=== PATIENT | male | born 1925 | race Caucasian/White ===

== ENCOUNTER → 2016-03-09 | Outpatient (CLI) | payer MEDICARE ==
[~2016-03-09] MED LIST: /TAMS4CA PO; ACET-654 PO; AMLO5TAB2 PO; ASCO250C PO; ASPI81CH32 PO; ASPI81TA45 PO; ATEN25TA; BABY81CH PO; CALC0.25 PO; CALCITRIOL PO; COLA100C PO; DEXI60CA PO; FINA5TAB2 PO; FLOM5CAP PO; HYDR50TA7; LEVO125T3 PO; LEVO137T2 PO; LOSA50TA20 PO; MIRA3350 PO; MULTLIQ7 PO; PANT40TA2 PO; PRAV40TA PO; PRAV40TA2 PO; RANI300C PO; SYNT125T PO; SYNTHROID PO; THERGRAN PO; VITA-112 PO; VITAD1000T PO
[2016-03-09 09:20] LABS: MEAN CORPUSCULAR HEMOGLOBIN 30.4 pg (27.0-33.0); MEAN CORPUSCULAR HGB CONC 33.1 g/dl (32.0-36.5); MEAN CORPUSCULAR VOLUME 91.8 fl (80.0-96.0); WHITE BLOOD COUNT 5.8 K/mm3 (4.0-10.0)
[2016-03-09 09:43] LABS: ALBUMIN 3.7 GM/DL (3.2-5.2); ALBUMIN/GLOBULIN RATIO 1.12 (1.00-1.93); BILIRUBIN,TOTAL 0.6 MG/DL (0.2-1.0); CALCIUM LEVEL 9.2 MG/DL (8.8-10.2); CREATININE FOR GFR 2.23 MG/DL (0.70-1.30); GLOMERULAR FILTRATION RATE 29.8 (>35); POTASSIUM SERUM 4.2 MEQ/L (3.5-5.1)
== END ==
LOC: M WUC 08:15
PROVIDERS: ATTEND Physician Assistant Medical
DX: R10.13 Epigastric pain (principal)

== ENCOUNTER → 2016-03-15 | Outpatient (CLI) | payer MEDICARE ==
[~2016-03-15] MED LIST changes: +E-Z-GAS II EFFERVESCENT PACKET (SODIUM BICARB./CITRIC ACID/SIMETHICONE) As Ordered ONE; +E-Z-HD 98% w/w 340GM SUSP BTL As Ordered ONE; +E-Z-PAQUE 96% w/w SUSP 176GM BTL As Ordered ONE
--- NOTE | 2016-03-15 16:55 | REP ---
UPPER GI, AIR CONTRAST: The procedure was performed under the direct supervision of Dr. Manning. The images were reviewed with Dr. Manning. The tool honing machine set up operator film shows no organomegaly or pathological masses. The intestinal gas pattern is nonspecific. There are surgical clips noted in the right upper quadrant as well as a single surgical clip overlying the right pelvis. There is a calcification in the pelvis to the left of midline which is seen to the left of the rectum on a previous CAT scan dated 04/10/2015. Liquid barium and gas-producing granules were given in the erect position as well as liquid barium in the prone oblique position in order to perform a double-contrast upper GI examination. The oral and pharyngeal stage of deglutition are unremarkable. During esophageal transport there re tertiary waves demonstrated. Note is made of a dual lead pace maker in place. There is no esophagitis, stricture, mucosal ring, or hiatal hernia. Gastroesophageal reflux is not demonstrated on this examination. The stomach parker are normally outlined. The rugal folds are smooth and regular. There is no gastritis, neoplasm, or ulcer disease. The duodenal parker are normally outlined. The mucosal folds are smooth and regular. There is no duodenitis, pancreatitis, peptic ulcer disease, or neoplasm. The visualized portion of the proximal small bowel appears normal in course and caliber. IMPRESSION: Esophageal dysmotility, otherwise unremarkable double contrast upper GI examination. 1 minute and 26 seconds of fluoroscopic time was utilized for this procedure. Reviewed by LAMONT Garcia 03/16/2016 08:24 AEdited and Signed by Mat Manning MD 03/16/2016 09:41 A
== END ==
LOC: M RAD 08:23
PROVIDERS: ATTEND Physician Assistant Medical
DX: R10.13 Epigastric pain (principal); K31.84 Gastroparesis; K59.00 Constipation, unspecified

== ENCOUNTER 2016-03-26 17:21 | Emergency (ER) | payer MEDICARE ==
[~2016-03-26 17:21] MED LIST changes: -E-Z-GAS II EFFERVESCENT PACKET (SODIUM BICARB./CITRIC ACID/SIMETHICONE) As Ordered ONE; -E-Z-HD 98% w/w 340GM SUSP BTL As Ordered ONE; -E-Z-PAQUE 96% w/w SUSP 176GM BTL As Ordered ONE
--- NOTE | 2016-03-26 20:30 | REPUSA ---
HISTORY: COMPARISON: None. TECHNIQUE: Multiple thin-section contiguous helically-acquired, axially-displayed computed tomographic images of the brain were obtained from the posterior fossa continued through the supratentorial structures, with images reviewed at brain, intermediate, and bone windows. FINDINGS: No acute intracranial hemorrhage or evidence of acute transcortical ischemia. No suspicious intra or extra axial fluid collection, middling shift, or evidence of hydrocephalus. Mild prominence of the co rtical sulci consistent with age-appropriate atrophy and choroid plexus calcifications which are also likely age-related. The orbits and sella demonstrate no suspicious abnormality. Visualized paranasal sinuses, mastoid air cells, and middle ear cavities are patent. Osseous structures and extra cranial soft tissues demonstrate no abnormalities. IMPRESSION: No acute intracranial abnormality. Thank you for your kind referral of this patient.
--- NOTE | 2016-03-26 21:21 | EDDOCDS ---
Nurse's Notes [facility] Name: Baldev Sanders Age: 89 yrs Sex: Male : 1925 Arrival Date: 03/26/2016 Time: 17:21 Bed TR8 Private MD: Florencio Daigle H. Diagnosis: Pain, unspecified-In Right Ear Presentation: 03/26 17:32 Presenting complaint: Patient states: pain inside pinna rt ear at the top saw his [facility] network support engineer who injected the area , now pain behind right ear. 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 Adult Sepsis Screening: The patient does not have new or worsening altered mentation. Patient's respiratory rate is less than 22. Systolic blood pressure is greater than 100. Patient has a qSOFA score of 0- Negative Sepsis Screen. Suicide/Homicide risk assessment- the patient denies having any suicidal and/or homicidal ideations and does not present with any other emotional, behavioral or mental health complaints. Status: Patient is not a workforce services representative or dependent. Transition of care: patient was not received from another setting of care. 17:32 Acuity: FABIO Level 5 [facility] 17:32 Method Of Arrival: Walkin/Carried/Asstd [facility] Triage Assessment: 17:41 General: Appears in no apparent distress, Behavior is appropriate for age, pleasant. [facility] Pain: Location: right ear Pain currently is 4 out of 10 on a pain scale. Neurological: Level of Consciousness is awake, alert, Oriented to person, place, time. EENT: Reports pain in pinna of right ear Pain is 4 out of 10 on a pain scale. Respiratory: Airway is patent Respiratory effort is even, unlabored. Derm: Skin is pink, warm & dry. Historical: - Allergies: Vasotec (Anaphylaxis); Omeprazole (Rash); - Home Meds: 1. amlodipine 10 mg Oral tab 1 tab nightly (Last dose: 03/25/2016) 2. calcitrol 0.25 mg daily (Last dose: 03/26/2016 08:30) 3. Flomax 0.4 mg Oral cp24 1 cap nightly (Last dose: 03/25/2016) 4. levothyroxine 137 mcg Oral cap 1 cap once daily (Last dose: 03/26/2016 08:30) 5. pravastatin 40 mg oral tab 1 tab nightly (Last dose: 03/25/2016) 6. Protonix 40 mg oral TbEC 1 tab 2 times per day (Last dose: 03/26/2016 08:30) 7. Zantac 150 mg oral tab 1 tab nightly (Last dose: 03/25/2016) 8. aspirin 81 mg Oral tab 1 tab once daily (Last dose: 03/26/2016 08:30) 9. Vitamin D Oral 1,000 unit daily (Last dose: 03/26/2016 08:30) 10. multivitamin Oral tab 1 tablet daily (Last dose: 03/26/2016 08:30) - PMHx: GERD; Hypercholesterolemia; Hypothyroidism; Hypertension; enlarged prostate; - PSHx: HERNIA REPAIR; Thyroid Surgery; Pacemaker Insertion (November 2011); - Social history: Smoking status: Patient states former smoker of tobacco. No barriers to communication noted, The patient speaks fluent Filipino. - Family history: Not pertinent. - : The pt / caregiver states he / she is not on anticoagulants. Home medication list is obtained from the patient. - Exposure Risk Screening:: None identified. Screenin:18 Screening information is obtained from the patient. Fall risk: No risks identified. mcp Assistance ADL's: requires no assistance with activities of daily living. Abuse/DV Screen: The patient / caregiver reports he/she is: not in a situation that causes fear, pain or injury. Nutritional screening: No deficits noted. Advance Directives: There is no active DNR order. home support is adequate. Assessment: 21:18 General: Appears uncomfortable, Behavior is cooperative. Pain: Location: pinna of right mcp ear. Neurological: No deficits noted. Respiratory: No deficits noted. Derm: Skin is pink, warm & dry. Vital Signs: 17:24 BP 147 / 81; Pulse 83; Resp 17; Temp 96.8(O); Pulse Ox 98% on R/A; Weight 74.84 kg (R); lr2 Height 5 ft. 7 in. (170.18 cm) (R); Pain 4/10; 17:24 Body Mass Index 25.84 (74.84 kg, 170.18 cm) lr2 Vitals: 17:24 Log In Time: March 26, 2016 at 17:21. lr2 ED Course: 17:23 Patient visited by Kaylah Aguila. lr2 17:23 Florencio Daigle is Private Physician. lr2 17:23 Patient moved to Waiting lr2 17:24 Patient moved to Pre RCE lr2 17:35 Triage Initiated kpj 17:55 Patient moved to Triage 2 dem1 18:11 Alexei Rodriguez PA-C is PHCP. dk1 18:11 Tracie Medina MD is Attending Physician. dk1 18:11 Patient visited by Alexei Rodriguez PA-C. dk1 18:17 Patient name changed from Baldev\S\G\S\Marilyn\S\ to Baldev\S\Sudheer\S\Marilyn. EDMS 18:19 [id number] Payment Agreement was scanned into [employer] and attached to record. gb 18:57 Patient moved to TR1 dem1 20:36 CT Head Without Contrast Returned. EDMS 20:46 Patient moved to PR1 / 25 [facility] 20:51 Florencio Daigle is Referral Physician. dk1 21:19 The patient / caregiver is instructed regarding the plan of care and ED course. Patient mcp has correct armband on for positive identification. Bed in low position. Call light in reach. 21:19 Patient moved to TR8 cz 21:19 No IV's were initiated during this patient's visit. No procedures done that require mcp assistance. Order Results: Radiology Order: CT Head Without Contrast Test: CT Head Without Contrast REASON FOR EXAMINATION: Right Ear/Mastoid pain; ; HISTORY:; COMPARISON: None.; TECHNIQUE:; Multiple thin-section contiguous helically-acquired, axially-displayed computed tomographic images of; the brain were obtained from the posterior fossa continued through the supratentorial; structures, with images reviewed at brain, intermediate, and bone windows.; FINDINGS:; No acute intracranial hemorrhage or evidence of acute transcortical ischemia. No suspicious intra or; extra axial fluid collection, middling shift, or evidence of hydrocephalus. Mild prominence of the co; rtical sulci consistent with age-appropriate atrophy and choroid plexus calcifications which are also; likely age-related.; The orbits and sella demonstrate no suspicious abnormality.; Visualized paranasal sinuses, mastoid air cells, and middle ear cavities are patent.; Osseous structures and extra cranial soft tissues demonstrate no abnormalities.; IMPRESSION:; No acute intracranial abnormality.; Thank you for your kind referral of this patient.; ; Outcome: 20:51 Discharge ordered by Provider. dk1 21:20 Discharge Assessment: patient administered narcotics - no. The following High Risk [facility] Discharge criteria are identified: None. Discharged to home ambulatory, with family. Condition: stable. Discharge instructions given to patient, Instructed on discharge instructions, follow up and referral plans. medication usage, Demonstrated understanding of instructions, medications, Pt was receptive of discharge instructions/ teaching. Prescriptions given X 1. No special radiology studies were completed. Property sent home with patient. 21:20 Patient left the ED. [facility] Signatures: Dispatcher [employer] EDMS Jennifer Santana RN RN Carmenza Newberry RN RN Dominik Ferrara, RN RN Carol Tang, Alexei Amin, PA-C PA-C david1 Ammy Gunderson1 Sherrill Iverson,RN RN Kaylah Bob2 MONTRELL
--- NOTE | 2016-03-26 21:21 | EDDOCDS ---
Physician Documentation [facility] Name: Baldev Sanders Age: 89 yrs Sex: Male : 1925 Arrival Date: 03/26/2016 Time: 17:21 Bed TR8 Private MD: Florencio Daigle H. Disposition: 03/26/16 20:51 Discharged to Home/Self Care. Impression: Pain, unspecified - In Right Ear. - Condition is Stable. - Discharge Instructions: Pain Without a Known Cause. - Prescriptions for Tylenol 325 mg Oral Tablet - take 2 tablet by ORAL route every 6 hours as needed; 1 bottle. - Medication Reconciliation, Local Pharmacy Hours form. - Follow up: Florencio Daigle; When: 2 - 3 days; Reason: Continuance of care. Follow up: Emergency Department; When: As needed; Reason: Worsening of conditions. - Problem is new. - Symptoms have improved. Historical: - Allergies: Vasotec (Anaphylaxis); Omeprazole (Rash); - Home Meds: 1. amlodipine 10 mg Oral tab 1 tab nightly (Last dose: 03/25/2016) 2. calcitrol 0.25 mg daily (Last dose: 03/26/2016 08:30) 3. Flomax 0.4 mg Oral cp24 1 cap nightly (Last dose: 03/25/2016) 4. levothyroxine 137 mcg Oral cap 1 cap once daily (Last dose: 03/26/2016 08:30) 5. pravastatin 40 mg oral tab 1 tab nightly (Last dose: 03/25/2016) 6. Protonix 40 mg oral TbEC 1 tab 2 times per day (Last dose: 03/26/2016 08:30) 7. Zantac 150 mg oral tab 1 tab nightly (Last dose: 03/25/2016) 8. aspirin 81 mg Oral tab 1 tab once daily (Last dose: 03/26/2016 08:30) 9. Vitamin D Oral 1,000 unit daily (Last dose: 03/26/2016 08:30) 10. multivitamin Oral tab 1 tablet daily (Last dose: 03/26/2016 08:30) - PMHx: GERD; Hypercholesterolemia; Hypothyroidism; Hypertension; enlarged prostate; - PSHx: HERNIA REPAIR; Thyroid Surgery; Pacemaker Insertion (November 2011); - Social history: Smoking status: Patient states former smoker of tobacco. No barriers to communication noted, The patient speaks fluent Prydeinig. - Family history: Not pertinent. - : The pt / caregiver states he / she is not on anticoagulants. Home medication list is obtained from the patient. - Exposure Risk Screening:: None identified. Vital Signs: 03/26 17:24 BP 147 / 81; Pulse 83; Resp 17; Temp 96.8(O); Pulse Ox 98% on R/A; Weight 74.84 kg / lr2 164.99 lbs (R); Height 5 ft. 7 in. (170.18 cm) (R); Pain 4/10; 17:24 Body Mass Index 25.84 (74.84 kg, 170.18 cm) lr2 MDM: 18:15 Financial registration complete. gb 18:19 [facility] Payment Agreement was scanned into [employer] and attached to record. gb 18:23 CT Head Without Contrast Ordered. EDMS Signatures: Dispatcher [employer] EDMS Jennifer Santana RN RN kpj Peters, Mary, RN RN mcp Barnhardt, Gloria, Prashanth Reg Alexei Coronel, PALexis PALexis hernandez1 The chart was reviewed and I authenticate all verbal orders and agree with the evaluation and treatment provided.Attachments: 18:19 [facility] Payment Agreement gb MTDD
--- NOTE | 2016-03-28 22:21 | EDDOCDS ---
Nurse's Notes [facility] Name: Baldev Sanders Age: 89 yrs Sex: Male : 1925 Arrival Date: 03/26/2016 Time: 17:21 Bed TR8 Private MD: Florencio Daigle H. Diagnosis: Pain, unspecified-In Right Ear Presentation: 03/26 17:32 Presenting complaint: Patient states: pain inside pinna rt ear at the top saw his [facility] business operations consultant who injected the area , now pain behind right ear. 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 Adult Sepsis Screening: The patient does not have new or worsening altered mentation. Patient's respiratory rate is less than 22. Systolic blood pressure is greater than 100. Patient has a qSOFA score of 0- Negative Sepsis Screen. Suicide/Homicide risk assessment- the patient denies having any suicidal and/or homicidal ideations and does not present with any other emotional, behavioral or mental health complaints. Status: Patient is not a branch service leader or dependent. Transition of care: patient was not received from another setting of care. 17:32 Acuity: FABIO Level 5 [facility] 17:32 Method Of Arrival: Walkin/Carried/Asstd [facility] Triage Assessment: 17:41 General: Appears in no apparent distress, Behavior is appropriate for age, pleasant. [facility] Pain: Location: right ear Pain currently is 4 out of 10 on a pain scale. Neurological: Level of Consciousness is awake, alert, Oriented to person, place, time. EENT: Reports pain in pinna of right ear Pain is 4 out of 10 on a pain scale. Respiratory: Airway is patent Respiratory effort is even, unlabored. Derm: Skin is pink, warm & dry. Historical: - Allergies: Vasotec (Anaphylaxis); Omeprazole (Rash); - Home Meds: 1. amlodipine 10 mg Oral tab 1 tab nightly (Last dose: 03/25/2016) 2. calcitrol 0.25 mg daily (Last dose: 03/26/2016 08:30) 3. Flomax 0.4 mg Oral cp24 1 cap nightly (Last dose: 03/25/2016) 4. levothyroxine 137 mcg Oral cap 1 cap once daily (Last dose: 03/26/2016 08:30) 5. pravastatin 40 mg oral tab 1 tab nightly (Last dose: 03/25/2016) 6. Protonix 40 mg oral TbEC 1 tab 2 times per day (Last dose: 03/26/2016 08:30) 7. Zantac 150 mg oral tab 1 tab nightly (Last dose: 03/25/2016) 8. aspirin 81 mg Oral tab 1 tab once daily (Last dose: 03/26/2016 08:30) 9. Vitamin D Oral 1,000 unit daily (Last dose: 03/26/2016 08:30) 10. multivitamin Oral tab 1 tablet daily (Last dose: 03/26/2016 08:30) - PMHx: GERD; Hypercholesterolemia; Hypothyroidism; Hypertension; enlarged prostate; - PSHx: HERNIA REPAIR; Thyroid Surgery; Pacemaker Insertion (November 2011); - Social history: Smoking status: Patient states former smoker of tobacco. No barriers to communication noted, The patient speaks fluent Peruvian. - Family history: Not pertinent. - : The pt / caregiver states he / she is not on anticoagulants. Home medication list is obtained from the patient. - Exposure Risk Screening:: None identified. Screenin:18 Screening information is obtained from the patient. Fall risk: No risks identified. mcp Assistance ADL's: requires no assistance with activities of daily living. Abuse/DV Screen: The patient / caregiver reports he/she is: not in a situation that causes fear, pain or injury. Nutritional screening: No deficits noted. Advance Directives: There is no active DNR order. home support is adequate. Assessment: 21:18 General: Appears uncomfortable, Behavior is cooperative. Pain: Location: pinna of right mcp ear. Neurological: No deficits noted. Respiratory: No deficits noted. Derm: Skin is pink, warm & dry. Vital Signs: 17:24 BP 147 / 81; Pulse 83; Resp 17; Temp 96.8(O); Pulse Ox 98% on R/A; Weight 74.84 kg (R); lr2 Height 5 ft. 7 in. (170.18 cm) (R); Pain 4/10; 17:24 Body Mass Index 25.84 (74.84 kg, 170.18 cm) lr2 Vitals: 17:24 Log In Time: March 26, 2016 at 17:21. lr2 ED Course: 17:23 Patient visited by Kaylah Aguila. lr2 17:23 Florencio Daigle is Private Physician. lr2 17:23 Patient moved to Waiting lr2 17:24 Patient moved to Pre RCE lr2 17:35 Triage Initiated kpj 17:55 Patient moved to Triage 2 dem1 18:11 Alexei Rodriguez PA-C is PHCP. dk1 18:11 Tracie Medina MD is Attending Physician. dk1 18:11 Patient visited by Alexei Rodriguez PA-C. dk1 18:17 Patient name changed from Baldev\S\G\S\Marilyn\S\ to Baldev\S\Sudheer\S\Marilyn. EDMS 18:19 [facility] Payment Agreement was scanned into [employer] and attached to record. gb 18:57 Patient moved to TR1 dem1 20:36 CT Head Without Contrast Returned. EDMS 20:46 Patient moved to PR1 / 25 [facility] 20:51 Florencio Daigle is Referral Physician. dk1 21:19 The patient / caregiver is instructed regarding the plan of care and ED course. Patient mcp has correct armband on for positive identification. Bed in low position. Call light in reach. 21:19 Patient moved to TR8 cz 21:19 No IV's were initiated during this patient's visit. No procedures done that require mcp assistance. 22:02 T-Sheet-- Draft Copy was scanned into [employer] and attached to record. klr 02 10:30 Radiology Report was scanned into [employer] and attached to record. gb Order Results: Radiology Order: CT Head Without Contrast Test: CT Head Without Contrast REASON FOR EXAMINATION: Right Ear/Mastoid pain; ; HISTORY:; COMPARISON: None.; TECHNIQUE:; Multiple thin-section contiguous helically-acquired, axially-displayed computed tomographic images of; the brain were obtained from the posterior fossa continued through the supratentorial; structures, with images reviewed at brain, intermediate, and bone windows.; FINDINGS:; No acute intracranial hemorrhage or evidence of acute transcortical ischemia. No suspicious intra or; extra axial fluid collection, middling shift, or evidence of hydrocephalus. Mild prominence of the co; rtical sulci consistent with age-appropriate atrophy and choroid plexus calcifications which are also; likely age-related.; The orbits and sella demonstrate no suspicious abnormality.; Visualized paranasal sinuses, mastoid air cells, and middle ear cavities are patent.; Osseous structures and extra cranial soft tissues demonstrate no abnormalities.; IMPRESSION:; No acute intracranial abnormality.; Thank you for your kind referral of this patient.; ; Outcome: 03/26 20:51 Discharge ordered by Provider. dk1 21:20 Discharge Assessment: patient administered narcotics - no. The following High Risk [facility] Discharge criteria are identified: None. Discharged to home ambulatory, with family. Condition: stable. Discharge instructions given to patient, Instructed on discharge instructions, follow up and referral plans. medication usage, Demonstrated understanding of instructions, medications, Pt was receptive of discharge instructions/ teaching. Prescriptions given X 1. No special radiology studies were completed. Property sent home with patient. 21:20 Patient left the ED. [facility] Signatures: Dispatcher [employer] EDMS Jennifer Santana RN RN Carmenza Newberry RN RN mcp Zecher, Calvin, RN RN cz Barnhardt, Gloria, Alexei Amin, PA-C PA-C david1 Ammy Gunderson1 Sherrill Iverson RN RN Juhi Limon Laura lr2 Chart Complete MTDCliff
--- NOTE | 2016-03-28 22:21 | EDDOCDS ---
Physician Documentation [facility] Name: Baldev Sanders Age: 89 yrs Sex: Male : 1925 Arrival Date: 03/26/2016 Time: 17:21 Bed TR8 Private MD: Florencio Daigle H. Disposition: 03/26/16 20:51 Discharged to Home/Self Care. Impression: Pain, unspecified - In Right Ear. - Condition is Stable. - Discharge Instructions: Pain Without a Known Cause. - Prescriptions for Tylenol 325 mg Oral Tablet - take 2 tablet by ORAL route every 6 hours as needed; 1 bottle. - Medication Reconciliation, Local Pharmacy Hours form. - Follow up: Florencio Daigle; When: 2 - 3 days; Reason: Continuance of care. Follow up: Emergency Department; When: As needed; Reason: Worsening of conditions. - Problem is new. - Symptoms have improved. Historical: - Allergies: Vasotec (Anaphylaxis); Omeprazole (Rash); - Home Meds: 1. amlodipine 10 mg Oral tab 1 tab nightly (Last dose: 03/25/2016) 2. calcitrol 0.25 mg daily (Last dose: 03/26/2016 08:30) 3. Flomax 0.4 mg Oral cp24 1 cap nightly (Last dose: 03/25/2016) 4. levothyroxine 137 mcg Oral cap 1 cap once daily (Last dose: 03/26/2016 08:30) 5. pravastatin 40 mg oral tab 1 tab nightly (Last dose: 03/25/2016) 6. Protonix 40 mg oral TbEC 1 tab 2 times per day (Last dose: 03/26/2016 08:30) 7. Zantac 150 mg oral tab 1 tab nightly (Last dose: 03/25/2016) 8. aspirin 81 mg Oral tab 1 tab once daily (Last dose: 03/26/2016 08:30) 9. Vitamin D Oral 1,000 unit daily (Last dose: 03/26/2016 08:30) 10. multivitamin Oral tab 1 tablet daily (Last dose: 03/26/2016 08:30) - PMHx: GERD; Hypercholesterolemia; Hypothyroidism; Hypertension; enlarged prostate; - PSHx: HERNIA REPAIR; Thyroid Surgery; Pacemaker Insertion (November 2011); - Social history: Smoking status: Patient states former smoker of tobacco. No barriers to communication noted, The patient speaks fluent Congolese. - Family history: Not pertinent. - : The pt / caregiver states he / she is not on anticoagulants. Home medication list is obtained from the patient. - Exposure Risk Screening:: None identified. Vital Signs: 03/26 17:24 BP 147 / 81; Pulse 83; Resp 17; Temp 96.8(O); Pulse Ox 98% on R/A; Weight 74.84 kg / lr2 164.99 lbs (R); Height 5 ft. 7 in. (170.18 cm) (R); Pain 4/10; 17:24 Body Mass Index 25.84 (74.84 kg, 170.18 cm) lr2 MDM: 18:15 Financial registration complete. gb 18:19 [facility] Payment Agreement was scanned into [employer] and attached to record. gb 18:23 CT Head Without Contrast Ordered. EDMS 22:02 T-Sheet-- Draft Copy was scanned into [employer] and attached to record. klr 03/27 10:30 Radiology Report was scanned into [employer] and attached to record. gb Signatures: Dispatcher [employer] EDVT Jennifer Santana RN RN kpj Peters, Mary, RN RN mcp Barnhardt, Gloria, Reg Reg Alexei Coronel, DAVIS PAJuhi Bobo The chart was reviewed and I authenticate all verbal orders and agree with the evaluation and treatment provided.Attachments: 03/26 18:19 [facility] Payment Agreement gb 22:02 T-Sheet-- Draft Copy klr Chart Complete MTDD
--- NOTE | 2016-03-28 22:21 | EDDOCDS ---
Physician Documentation [facility] Name: Baldev Sanders Age: 89 yrs Sex: Male : 1925 Arrival Date: 03/26/2016 Time: 17:21 Bed TR8 Private MD: Florencio Daigle H. Disposition: 03/26/16 20:51 Discharged to Home/Self Care. Impression: Pain, unspecified - In Right Ear. - Condition is Stable. - Discharge Instructions: Pain Without a Known Cause. - Prescriptions for Tylenol 325 mg Oral Tablet - take 2 tablet by ORAL route every 6 hours as needed; 1 bottle. - Medication Reconciliation, Local Pharmacy Hours form. - Follow up: Florencio Daigle; When: 2 - 3 days; Reason: Continuance of care. Follow up: Emergency Department; When: As needed; Reason: Worsening of conditions. - Problem is new. - Symptoms have improved. Historical: - Allergies: Vasotec (Anaphylaxis); Omeprazole (Rash); - Home Meds: 1. amlodipine 10 mg Oral tab 1 tab nightly (Last dose: 03/25/2016) 2. calcitrol 0.25 mg daily (Last dose: 03/26/2016 08:30) 3. Flomax 0.4 mg Oral cp24 1 cap nightly (Last dose: 03/25/2016) 4. levothyroxine 137 mcg Oral cap 1 cap once daily (Last dose: 03/26/2016 08:30) 5. pravastatin 40 mg oral tab 1 tab nightly (Last dose: 03/25/2016) 6. Protonix 40 mg oral TbEC 1 tab 2 times per day (Last dose: 03/26/2016 08:30) 7. Zantac 150 mg oral tab 1 tab nightly (Last dose: 03/25/2016) 8. aspirin 81 mg Oral tab 1 tab once daily (Last dose: 03/26/2016 08:30) 9. Vitamin D Oral 1,000 unit daily (Last dose: 03/26/2016 08:30) 10. multivitamin Oral tab 1 tablet daily (Last dose: 03/26/2016 08:30) - PMHx: GERD; Hypercholesterolemia; Hypothyroidism; Hypertension; enlarged prostate; - PSHx: HERNIA REPAIR; Thyroid Surgery; Pacemaker Insertion (November 2011); - Social history: Smoking status: Patient states former smoker of tobacco. No barriers to communication noted, The patient speaks fluent Malian. - Family history: Not pertinent. - : The pt / caregiver states he / she is not on anticoagulants. Home medication list is obtained from the patient. - Exposure Risk Screening:: None identified. Vital Signs: 03/26 17:24 BP 147 / 81; Pulse 83; Resp 17; Temp 96.8(O); Pulse Ox 98% on R/A; Weight 74.84 kg / lr2 164.99 lbs (R); Height 5 ft. 7 in. (170.18 cm) (R); Pain 4/10; 17:24 Body Mass Index 25.84 (74.84 kg, 170.18 cm) lr2 MDM: 18:15 Financial registration complete. gb 18:19 [facility] Payment Agreement was scanned into [employer] and attached to record. gb 18:23 CT Head Without Contrast Ordered. EDMS 22:02 T-Sheet-- Draft Copy was scanned into [employer] and attached to record. klr 03/27 10:30 Radiology Report was scanned into [employer] and attached to record. gb Signatures: Dispatcher [employer] EDDE Jennifer Santana RN RN kpj Peters, Mary, RN RN mcp Barnhardt, Gloria, Reg Reg Alexei Coronel, DAVIS PAJuhi Bobo The chart was reviewed and I authenticate all verbal orders and agree with the evaluation and treatment provided.Attachments: 03/26 18:19 [facility] Payment Agreement gb 22:02 T-Sheet-- Draft Copy klr Chart Complete MTDD
== END 2016-03-26 21:20 | disposition home or self-care (01) ==
LOC: M ED 17:21
DX: H92.01 Otalgia, right ear (principal); K21.9 Gastro-esophageal reflux disease without esophagitis; E78.00 Pure hypercholesterolemia, unspecified; E03.9 Hypothyroidism, unspecified; I10 Essential (primary) hypertension; N40.0 Benign prostatic hyperplasia without lower urinary tract symptoms; Z95.0 Presence of cardiac pacemaker; Z87.891 Personal history of nicotine dependence; Z79.82 Long term (current) use of aspirin; Z79.899 Other long term (current) drug therapy; Z88.8 Allergy status to other drugs, medicaments and biological substances

== ENCOUNTER 2016-04-02 10:08 | Emergency (ER) | payer MEDICARE ==
[2016-04-02 11:16] LABS: BASO % 0.6 % (0.0-1.0); EOS # 0.2 K/mm3 (0.0-0.50); EOS % 3.2 % (0.0-3.0); LARGE UNSTAINED CELL # 0.2 K/mm3 (0.0-0.4); LARGE UNSTAINED CELL % 2.5 % (0.0-4.0); LYMPH # 0.7 K/mm3 (1.5-4.5); LYMPH % 12.3 % (24.0-44.0); MEAN CORPUSCULAR HEMOGLOBIN 29.8 pg (27.0-33.0); MEAN CORPUSCULAR HGB CONC 32.3 g/dl (32.0-36.5); MONO # 0.3 K/mm3 (0.0-0.8); MONO % 5.7 % (0.0-5.0); NEUTROPHILS # 4.5 K/mm3 (1.8-7.7); NEUTROPHILS % 75.7 % (36.0-66.0); PLATELET COUNT, AUTOMATED 209 k/mm3 (150-450); RED CELL DISTRIBUTION WIDTH 12.9 % (11.5-14.5); WHITE BLOOD COUNT 5.9 K/mm3 (4.0-10.0)
[2016-04-02 11:48] LABS: CALCIUM LEVEL 8.7 MG/DL (8.8-10.2); CREATININE FOR GFR 2.05 MG/DL (0.70-1.30); FREE T4 1.34 NG/DL (0.76-1.46); GLOMERULAR FILTRATION RATE 32.7 (>35); POTASSIUM SERUM 4.4 MEQ/L (3.5-5.1)
--- NOTE | 2016-04-02 12:23 | EDDOCDS ---
Nurse's Notes [facility] Name: Baldev Sanders Age: 89 yrs Sex: Male : 1925 Arrival Date: 04/02/2016 Time: 10:08 Bed 12 Private MD: Florencio Daigle H. Diagnosis: Headache;Dizziness and giddiness Presentation: 04/02 10:14 Presenting complaint: Patient states: Headache and dizziness began last night. This mlb1 patient has no additional risk factors. Adult Sepsis Screening: The patient does not have new or worsening altered mentation. Patient's respiratory rate is less than 22. Systolic blood pressure is greater than 100. Patient has a qSOFA score of 0- Negative Sepsis Screen. No known or suspected infection- Negative Sepsis Screen. Suicide/Homicide risk assessment- the patient denies having any suicidal and/or homicidal ideations and does not present with any other emotional, behavioral or mental health complaints. Status: Patient is not a marketing services manager or dependent. Transition of care: patient was not received from another setting of care. 10:14 Acuity: FABIO Level 3 mlb1 10:14 Method Of Arrival: Walkin/Carried/Asstd mlb1 Triage Assessment: 10:18 Headache History: This patient does not have a history of previous headaches. General: mlb1 Appears in no apparent distress, Behavior is appropriate for age, cooperative. Pain: Location: head Pain currently is 5 out of 10 on a pain scale. Neurological: Level of Consciousness is awake, alert, Oriented to person, place, time, Moves all extremities. Full function Facial symmetry appears normal, Reports dizziness. Historical: - Allergies: Omeprazole (Rash); Vasotec (Anaphylaxis); - Home Meds: 1. amlodipine 10 mg Oral tab 1 tab nightly 2. aspirin 81 mg Oral tab 1 tab once daily 3. calcitrol 0.25 mg daily 4. Flomax 0.4 mg Oral cp24 1 cap nightly 5. levothyroxine 137 mcg Oral tab 1 cap once daily 6. multivitamin Oral tab 1 tab daily 7. pravastatin 40 mg oral tab 1 tab nightly 8. Protonix 40 mg Oral TbEC 1 tab 2 times per day 9. Vitamin D Oral 1000 unit daily 10. Zantac 150 mg Oral tab 1 tab nightly 11. Tylenol 325 mg Oral tab 2 tabs every 4 hours (Last dose: 04/02/2016 09:00) - PMHx: enlarged prostate; GERD; Hypercholesterolemia; Hypertension; Hypothyroidism; Cancer, Skin; - PSHx: Hernia repair; Thyroid Surgery; Pacemaker Insertion (November 2011); - Social history: Smoking status: Patient states former smoker of tobacco. No barriers to communication noted, The patient speaks fluent French, Speaks appropriately for age. - Family history: Not pertinent. - : The pt / caregiver states he / she is not on anticoagulants. Home medication list is obtained from the patient. - Exposure Risk Screening:: None identified. Screenin:28 Screening information is obtained from the patient. Fall risk: No risks identified. pml Assistance ADL's: requires no assistance with activities of daily living. Abuse/DV Screen: The patient / caregiver reports he/she is: not in a situation that causes fear, pain or injury. Nutritional screening: No deficits noted. Advance Directives: Currently, there is no health care proxy. home support is adequate. Assessment: 10:28 General: Appears in no apparent distress, Behavior is appropriate for age, cooperative. pml Pain: Location: head Pain currently is 5 out of 10 on a pain scale. Neurological: Level of Consciousness is awake, alert, Oriented to person, place, time. Neurological: Pasteuriser Operator are equal bilaterally Moves all extremities. Gait is steady, Speech is normal, Facial symmetry appears normal, Pupils are PERRLA. Cardiovascular: Capillary refill < 3 seconds. Respiratory: Airway is patent Respiratory effort is even, unlabored. GI: Abdomen is non- distended. Derm: Skin is pink, warm & dry. 11:30 General: restign on stretcher, resp easy and unlabored, skin p/w/d. sinus rhythm on pml monitor without ectopy. 12:20 General: Appears in no apparent distress, Behavior is appropriate for age, cooperative. pml Pain: Denies pain. Neurological: Level of Consciousness is awake, alert, Oriented to person, place, time. Cardiovascular: Capillary refill < 3 seconds. Respiratory: Airway is patent Respiratory effort is even, unlabored. Derm: Skin is pink, warm & dry. Vital Signs: 10:10 BP 152 / 91; Pulse 90; Resp 16; Temp 96.6; Pulse Ox 98% on R/A; Weight 74.84 kg (R); elp Height 5 ft. 7 in. (170.18 cm) (R); 10:26 BP 119 / 67 (auto/); pml 10:29 Pulse Ox 99% ; pml 11:11 BP 133 / 62 Sitting; Pulse 65; pml 11:11 BP 146 / 71 LA Supine; Pulse 60; pml 11:11 BP 126 / 63 Standing; Pulse 64; pml 11:45 BP 134 / 76 (auto/); pml 11:46 Pulse 60 MON; Pulse Ox 97% ; pml 11:56 Pulse 62 MON; Pulse Ox 96% ; pml 12:00 BP 139 / 76 (auto/); pml 12:21 BP 136 / 72; Pulse 61; Resp 18; Temp 97.6; Pulse Ox 99% ; pml 10:10 Body Mass Index 25.84 (74.84 kg, 170.18 cm) [facility] Vitals: 10:10 Log In Time: April 02, 2016 at 10:08. elp ED Course: 10:10 Patient visited by Keily Joshua PCA. elp 10:10 Florencio Daigle is Private Physician. elp 10:10 Patient moved to Waiting elp 10:11 Patient visited by Keily Joshua PCA. elp 10:11 Patient moved to Pre RCE elp 10:14 Patient visited by Bennie Dempsey, RN. mlb1 10:16 Triage Initiated mlb1 10:19 Patient visited by Bennie Dempsey, RN. mlb1 10:19 Irma Tucker,RN is Primary Nurse. ck1 10:19 Patient moved to Triage 1 mlb1 10:19 Patient moved to 12 ck1 10:28 The patient / caregiver is instructed regarding the plan of care and ED course. Patient margie has correct armband on for positive identification. Placed in gown. Bed in low position. Call light in reach. Side rails up X2. 10:30 Patient visited by Irma Tucker,RN. pml 10:31 Carolyn Fragoso MD is Attending Physician. ml 10:31 Patient visited by Carolyn Fragoso MD. ml 11:06 EKG done. (by ED staff). Reviewed by Carolyn Fragoso MD. jrd 11:07 [facility] Payment Agreement was scanned into [employer] and attached to record. gb 11:11 Inserted peripheral IV: 20gauge IV in right antecubital area and blood collected. pml Patient tolerated the procedure well. 11:12 Patient visited by Irma Tucker RN. pml 12:14 Florencio Daigle is Referral Physician. ml 12:14 Leticia Shah RNNP is Referral Physician. ml 12:21 Discontinued lock intact, bleeding controlled, pressure dressing applied, No pml redness/swelling at site. No procedures done that require assistance. Order Results: Lab Order: CBC with Diff; SPEC'M 04/02/16 11:04 Test: WHITE BLOOD COUNT; Value: 5.9; Range: 4.0-10.0; Units: K/mm3; Status: F Test: RED BLOOD COUNT; Value: 4.74; Range: 4.30-6.10; Units: M/mm3; Status: F Test: HEMOGLOBIN; Value: 14.1; Range: 14.0-18.0; Units: g/dl; Status: F Test: HEMATOCRIT; Value: 43.6; Range: 42.0-52.0; Units: %; Status: F Test: MEAN CORPUSCULAR VOLUME; Value: 92.0; Range: 80.0-96.0; Units: fl; Status: F Test: MEAN CORPUSCULAR HEMOGLOBIN; Value: 29.8; Range: 27.0-33.0; Units: pg; Status: F Test: MEAN CORPUSCULAR HGB CONC; Value: 32.3; Range: 32.0-36.5; Units: g/dl; Status: F Test: RED CELL DISTRIBUTION WIDTH; Value: 12.9; Range: 11.5-14.5; Units: %; Status: F Test: PLATELET COUNT, AUTOMATED; Value: 209; Range: 150-450; Units: k/mm3; Status: F Test: NEUTROPHILS %; Value: 75.7; Range: 36.0-66.0; Abnormal: Above high normal; Units: %; Status: F Test: LYMPH %; Value: 12.3; Range: 24.0-44.0; Abnormal: Below low normal; Units: %; Status: F Test: MONO %; Value: 5.7; Range: 0.0-5.0; Abnormal: Above high normal; Units: %; Status: F Test: EOS %; Value: 3.2; Range: 0.0-3.0; Abnormal: Above high normal; Units: %; Status: F Test: BASO %; Value: 0.6; Range: 0.0-1.0; Units: %; Status: F Test: LARGE UNSTAINED CELL %; Value: 2.5; Range: 0.0-4.0; Units: %; Status: F Test: NEUTROPHILS #; Value: 4.5; Range: 1.8-7.7; Units: K/mm3; Status: F Test: LYMPH #; Value: 0.7; Range: 1.5-4.5; Abnormal: Below low normal; Units: K/mm3; Status: F Test: MONO #; Value: 0.3; Range: 0.0-0.8; Units: K/mm3; Status: F Test: EOS #; Value: 0.2; Range: 0.0-0.50; Units: K/mm3; Status: F Test: BASO #; Value: 0.0; Range: 0.0-0.2; Units: K/mm3; Status: F Test: LARGE UNSTAINED CELL #; Value: 0.2; Range: 0.0-0.4; Units: K/mm3; Status: F Lab Order: MED Profile; SPEC'M 04/02/16 11:04 Test: GLUCOSE, FASTING; Value: 95; Range: 83-110; Units: MG/DL; Status: F Test: BLOOD UREA NITROGEN; Value: 35; Range: 7-18; Abnormal: Above high normal; Units: MG/DL; Status: F Test: CREATININE FOR GFR; Value: 2.05; Range: 0.70-1.30; Abnormal: Above high normal; Units: MG/DL; Status: F Test: GLOMERULAR FILTRATION RATE; Value: 32.7; Range: >35; Abnormal: Below low normal; Status: F Test: SODIUM LEVEL; Value: 142; Range: 136-145; Units: MEQ/L; Status: F Test: POTASSIUM SERUM; Value: 4.4; Range: 3.5-5.1; Units: MEQ/L; Status: F Test: CHLORIDE LEVEL; Value: 108; Range: 98-107; Abnormal: Above high normal; Units: MEQ/L; Status: F Test: CARBON DIOXIDE LEVEL; Value: 28; Range: 21-32; Units: MEQ/L; Status: F Test: ANION GAP; Value: 6; Range: 8-16; Abnormal: Below low normal; Units: MEQ/L; Status: F Test: CALCIUM LEVEL; Value: 8.7; Range: 8.8-10.2; Abnormal: Below low normal; Units: MG/DL; Status: F Test Note: ; Units are mL/min/1.73 m2 Chronic Kidney Disease Staging per NKF: Stage I & II GFR >=60 Normal to Mildly Decreased Stage III GFR 30-59 Moderately Decreased Stage IV GFR 15-29 Severely Decreased Stage V GFR <15 Very Little GFR Left ESRD GFR <15 on CONFIGURATION TECHNICIAN Lab Order: CIP; 04/02/16 11:04 Test: CPK CREATINE PHOSPHOKINASE; Value: 73; Range: 39-308; Units: U/L; Status: F Test: CK-MB VALUE MASS; Value: 2.8; Range: 0.0-3.6; Units: NG/ML; Status: F Test: MB/CK RELATIVE INDEX; Value: 3.83; Range: < OR =4; Status: F Test Note: ; DIAGNOSIS CRITERIA MMB ng/ml Relative Index (RI) NON-AMI < or = 5 N/A GODDARD ZONE > 5 < or = 4 AMI > 5 > 4 Lab Order: Troponin; 04/02/16 11:04 Test: TROPONIN I; Value: 0.02; Range: < 0.10; Units: NG/ML; Status: F Test Note: ; Troponin I Reference Interval for SignalSet LOCI: 99th Percentile= 0.00-0.045 ng/ml Risk Stratification: <= 0.10 ng/ml Decreased Risk for Adverse Clinical Events. 0.10-1.50 ng/ml Increased Risk for Adverse Clinical Events. Evaluation of additional criterion and/or repeat testing in 2-6 hours is suggested to rule out myocardial damage. >= 1.50 ng/ml Indicative of Myocardial Injury. Lab Order: TSH with Free T4; 04/02/16 11:04 Test: THYROID STIMULATING HORMONE; Value: 0.975; Range: 0.358-3.740; Units: uIU/ML; Status: F Test: FREE T4; Value: 1.34; Range: 0.76-1.46; Units: NG/DL; Status: F Outcome: 12:15 Discharge ordered by Provider. 12:21 Discharge Assessment: Patient awake, alert and oriented x 3. No cognitive and/or pml functional deficits noted. Patient verbalized understanding of disposition instructions. patient administered narcotics - no. The following High Risk Discharge criteria are identified: None. Discharged to home ambulatory. Condition: good Condition: stable. Discharge instructions given to patient, Instructed on discharge instructions, follow up and referral plans. Demonstrated understanding of instructions, Pt was receptive of discharge instructions/ teaching. CT Study completed. Property sent home with patient. 12:22 Patient left the ED. pml Signatures: Carolyn Fragoso MD MD ml Carol Zarate, Bennie Alexandra RN RN mlb1 Shirley Sarmiento,RN RN ck1 Irma Tucker,RN RN pml Keily Joshua, REGIONAL SALES COORDINATOR REGIONAL SALES COORDINATOR elp Jose Rivera, REGIONAL SALES COORDINATOR REGIONAL SALES COORDINATOR jrd RODNEYD
--- NOTE | 2016-04-02 12:23 | EDDOCDS ---
Physician Documentation [facility] Name: Baldev Sanders Age: 89 yrs Sex: Male : 1925 Arrival Date: 04/02/2016 Time: 10:08 Bed 12 Private MD: Florencio Gordon H. Disposition: 04/02/16 12:15 Discharged to Home/Self Care. Impression: Headache, Dizziness and giddiness. - Condition is Stable. - Discharge Instructions: Dizziness, General Headache Without Cause. - Medication Reconciliation, Local Pharmacy Hours form. - Follow up: Florencio Gordon; When: 1 - 2 days. Follow up: Leticia Ugarte RNNP; When: 1 week. - Problem is new. - Symptoms are unchanged. - Notes: return if worsening symptoms. follow up w dr gordon and omer ugarte Historical: - Allergies: Omeprazole (Rash); Vasotec (Anaphylaxis); - Home Meds: 1. amlodipine 10 mg Oral tab 1 tab nightly 2. aspirin 81 mg Oral tab 1 tab once daily 3. calcitrol 0.25 mg daily 4. Flomax 0.4 mg Oral cp24 1 cap nightly 5. levothyroxine 137 mcg Oral tab 1 cap once daily 6. multivitamin Oral tab 1 tab daily 7. pravastatin 40 mg oral tab 1 tab nightly 8. Protonix 40 mg Oral TbEC 1 tab 2 times per day 9. Vitamin D Oral 1000 unit daily 10. Zantac 150 mg Oral tab 1 tab nightly 11. Tylenol 325 mg Oral tab 2 tabs every 4 hours (Last dose: 04/02/2016 09:00) - PMHx: enlarged prostate; GERD; Hypercholesterolemia; Hypertension; Hypothyroidism; Cancer, Skin; - PSHx: Hernia repair; Thyroid Surgery; Pacemaker Insertion (November 2011); - Social history: Smoking status: Patient states former smoker of tobacco. No barriers to communication noted, The patient speaks fluent Belarusian, Speaks appropriately for age. - Family history: Not pertinent. - : The pt / caregiver states he / she is not on anticoagulants. Home medication list is obtained from the patient. - Exposure Risk Screening:: None identified. Vital Signs: 04/02 10:10 BP 152 / 91; Pulse 90; Resp 16; Temp 96.6; Pulse Ox 98% on R/A; Weight 74.84 kg / elp 164.99 lbs (R); Height 5 ft. 7 in. (170.18 cm) (R); 10:26 BP 119 / 67 (auto/); pml 10:29 Pulse Ox 99% ; pml 11:11 BP 133 / 62 Sitting; Pulse 65; pml 11:11 BP 146 / 71 LA Supine; Pulse 60; pml 11:11 BP 126 / 63 Standing; Pulse 64; pml 11:45 BP 134 / 76 (auto/); pml 11:46 Pulse 60 MON; Pulse Ox 97% ; pml 11:56 Pulse 62 MON; Pulse Ox 96% ; pml 12:00 BP 139 / 76 (auto/); pml 12:21 BP 136 / 72; Pulse 61; Resp 18; Temp 97.6; Pulse Ox 99% ; pml 10:10 Body Mass Index 25.84 (74.84 kg, 170.18 cm) elp MDM: 10:43 IV Saline Lock ordered. ml 10:43 Construction Lineman/Pulse Ox/q 15 min VS ordered. ml 10:43 Rhythm Strip to chart ordered. ml 10:44 Orthostatic VS ordered. ml 10:44 ECG WITH READING ER PHYS+CARDIAG ordered. EDMS 10:45 CBC with Diff Ordered. EDMS 10:45 MED Profile Ordered. EDMS 10:45 CIP Ordered. EDMS 10:45 Troponin Ordered. EDMS 10:45 TSH with Free T4 Ordered. EDMS 10:45 Chest, 1 View Ordered. EDMS 10:45 CT Head Without Contrast Ordered. EDMS 10:45 Financial registration complete. gb 11:07 [facility] Payment Agreement was scanned into [employer] and attached to record. gb 11:30 CBC with Diff Reviewed. ml 11:57 MED Profile Reviewed. ml 11:57 CIP Reviewed. ml 11:57 Troponin Reviewed. ml 11:57 TSH with Free T4 Reviewed. ml Signatures: Dispatcher [employer] EDMS Carolyn Fragoso MD MD ml Barnhardt, Gloria, Reg Reg Bennie Luna RN RN mlb1 Quay, Paulina, RN RN pml The chart was reviewed and I authenticate all verbal orders and agree with the evaluation and treatment provided.Attachments: 11:07 [facility] Payment Agreement gb MTDD
--- NOTE | 2016-04-02 13:11 | REP ---
CT BRAIN WITHOUT CONTRAST: 04/02/2016. Clinical history headache, dizziness. Comparison 03/26/2016, 10/25/2013. Findings: Ventricles are midline, symmetric and without dilatation. There is mild diffuse cerebral atrophy, age appropriate and proportionate to the ventricular size, greatest in the temporal and frontal lobes. Some diffuse cerebellar atrophy is noted also fairly mild. Heterogeneous low attenuation white matter changes seen bilaterally suggesting small vessel white matter ischemic disease. I see no vascular territory infarct, hemorrhage, mass or mass effect. Brainstem unremarkable. Basal cisterns intact. The mastoids were symmetric. Visualized sinuses clear. The calvarium and skull base are without fracture or focal lesion. Impression: 1. No acute infarct, hemorrhage, mass, mass effect or edema. 2. 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 Stable. 3. Sinuses, mastoids, skull base and calvarium without acute finding. Signed by Nadir Parks MD 04/02/2016 07:36 P
--- NOTE | 2016-04-02 13:12 | REP ---
PA CHEST: 04/02/2016. Comparison: AP portable chest 10/25/2013, 2 view chest 12/16/2011. Clinical history: Dizziness. Dual lead pacer is again seen better level of inflation noted. Heart size not grossly enlarged but has left ventricular configuration. The aorta is ectatic and tortuous but unchanged. Airway midline. No mediastinal or hilar mass. No acute infiltrate or pleural effusion. There are surgical clips and bilateral neck base. Degenerative changes shoulders and spine as before. Impression: 1. Dual lead pacer with leads in the right atrium and right ventricle, borderline heart size with left ventricular configuration but no edema, effusion or acute infiltrate. Signed by Nadir Parks MD 04/02/2016 07:36 P
--- NOTE | 2016-04-03 06:28 | ECGEPIP ---
Stationary ECG Study [facility] - ED Test Date: 2016-04-02 Pat Name: NICOLASA GOTTLIEB Department: Room: - Gender: M [employer] Police: dali : 1925 Requested By: Carolyn Fragoso Order Number: [id number] Reading MD: Carolyn Fragoso Measurements Intervals [place] Rate: 62 P: 51 DC: 174 QRS: -64 QRSD: 130 T: 26 QT: 478 QTc: 486 Interpretive Statements SINUS RHYTHM WITH OCCASIONAL VENTRICULAR PREMATURE COMPLEXES MARKED LEFT AXIS DEVIATION LEFT BUNDLE BRANCH BLOCK 04/10/15 - RATE DECREASED Electronically Signed On 04-03-2016 6:27:57 EST by Carolyn Fragoso
--- NOTE | 2016-04-04 13:23 | EDDOCDS ---
Physician Documentation [facility] Name: Baldev Sanders Age: 89 yrs Sex: Male : 1925 Arrival Date: 04/02/2016 Time: 10:08 Bed 12 Private MD: Florencio Gordon H. Disposition: 04/02/16 12:15 Discharged to Home/Self Care. Impression: Headache, Dizziness and giddiness. - Condition is Stable. - Discharge Instructions: Dizziness, General Headache Without Cause. - Medication Reconciliation, Local Pharmacy Hours form. - Follow up: Florencio Gordon; When: 1 - 2 days. Follow up: Leticia Ugarte RNNP; When: 1 week. - Problem is new. - Symptoms are unchanged. - Notes: return if worsening symptoms. follow up w dr gordon and omer ugarte Historical: - Allergies: Omeprazole (Rash); Vasotec (Anaphylaxis); - Home Meds: 1. amlodipine 10 mg Oral tab 1 tab nightly 2. aspirin 81 mg Oral tab 1 tab once daily 3. calcitrol 0.25 mg daily 4. Flomax 0.4 mg Oral cp24 1 cap nightly 5. levothyroxine 137 mcg Oral tab 1 cap once daily 6. multivitamin Oral tab 1 tab daily 7. pravastatin 40 mg oral tab 1 tab nightly 8. Protonix 40 mg Oral TbEC 1 tab 2 times per day 9. Vitamin D Oral 1000 unit daily 10. Zantac 150 mg Oral tab 1 tab nightly 11. Tylenol 325 mg Oral tab 2 tabs every 4 hours (Last dose: 04/02/2016 09:00) - PMHx: enlarged prostate; GERD; Hypercholesterolemia; Hypertension; Hypothyroidism; Cancer, Skin; - PSHx: Hernia repair; Thyroid Surgery; Pacemaker Insertion (November 2011); - Social history: Smoking status: Patient states former smoker of tobacco. No barriers to communication noted, The patient speaks fluent Guamanian, Speaks appropriately for age. - Family history: Not pertinent. - : The pt / caregiver states he / she is not on anticoagulants. Home medication list is obtained from the patient. - Exposure Risk Screening:: None identified. Vital Signs: 04/02 10:10 BP 152 / 91; Pulse 90; Resp 16; Temp 96.6; Pulse Ox 98% on R/A; Weight 74.84 kg / elp 164.99 lbs (R); Height 5 ft. 7 in. (170.18 cm) (R); 10:26 BP 119 / 67 (auto/); pml 10:29 Pulse Ox 99% ; pml 11:11 BP 133 / 62 Sitting; Pulse 65; pml 11:11 BP 146 / 71 LA Supine; Pulse 60; pml 11:11 BP 126 / 63 Standing; Pulse 64; pml 11:45 BP 134 / 76 (auto/); pml 11:46 Pulse 60 MON; Pulse Ox 97% ; pml 11:56 Pulse 62 MON; Pulse Ox 96% ; pml 12:00 BP 139 / 76 (auto/); pml 12:21 BP 136 / 72; Pulse 61; Resp 18; Temp 97.6; Pulse Ox 99% ; pml 10:10 Body Mass Index 25.84 (74.84 kg, 170.18 cm) elp MDM: 10:43 IV Saline Lock ordered. ml 10:43 Golf Course Manager/Pulse Ox/q 15 min VS ordered. ml 10:43 Rhythm Strip to chart ordered. ml 10:44 Orthostatic VS ordered. ml 10:44 ECG WITH READING ER PHYS+CARDIAG ordered. EDMS 10:45 CBC with Diff Ordered. EDMS 10:45 MED Profile Ordered. EDMS 10:45 CIP Ordered. EDMS 10:45 Troponin Ordered. EDMS 10:45 TSH with Free T4 Ordered. EDMS 10:45 Chest, 1 View Ordered. EDMS 10:45 CT Head Without Contrast Ordered. EDMS 10:45 Financial registration complete. gb 11:07 [facility] Payment Agreement was scanned into [employer] and attached to record. gb 11:30 CBC with Diff Reviewed. ml 11:57 MED Profile Reviewed. ml 11:57 CIP Reviewed. ml 11:57 Troponin Reviewed. ml 11:57 TSH with Free T4 Reviewed. ml 16:59 T-Sheet-- Draft Copy was scanned into [employer] and attached to record. klr 04/03 17:57 ECG/EKG was scanned into [employer] and attached to record. kf3 Signatures: Dispatcher [employer] EDMS Carolyn Fragoso MD MD ml Carol Zarate, Reg Reg gb Bennie Dempsey RN RN mlb1 Jose Raya, Reg Reg kf3 Garrett,Irma,Juhi Gonzalez RN The chart was reviewed and I authenticate all verbal orders and agree with the evaluation and treatment provided.Attachments: 04/02 11:07 [facility] [place] Payment Agreement gb 16:59 T-Sheet-- Draft Copy klr 04/03 17:57 ECG/EKG kf3 Chart Complete MTDD
--- NOTE | 2016-04-04 13:23 | EDDOCDS ---
Physician Documentation [facility] Name: Baldev Sanders Age: 89 yrs Sex: Male : 1925 Arrival Date: 04/02/2016 Time: 10:08 Bed 12 Private MD: Florencio Gordon H. Disposition: 04/02/16 12:15 Discharged to Home/Self Care. Impression: Headache, Dizziness and giddiness. - Condition is Stable. - Discharge Instructions: Dizziness, General Headache Without Cause. - Medication Reconciliation, Local Pharmacy Hours form. - Follow up: Florencio Gordon; When: 1 - 2 days. Follow up: Leticia Ugarte RNNP; When: 1 week. - Problem is new. - Symptoms are unchanged. - Notes: return if worsening symptoms. follow up w dr gordon and omer ugarte Historical: - Allergies: Omeprazole (Rash); Vasotec (Anaphylaxis); - Home Meds: 1. amlodipine 10 mg Oral tab 1 tab nightly 2. aspirin 81 mg Oral tab 1 tab once daily 3. calcitrol 0.25 mg daily 4. Flomax 0.4 mg Oral cp24 1 cap nightly 5. levothyroxine 137 mcg Oral tab 1 cap once daily 6. multivitamin Oral tab 1 tab daily 7. pravastatin 40 mg oral tab 1 tab nightly 8. Protonix 40 mg Oral TbEC 1 tab 2 times per day 9. Vitamin D Oral 1000 unit daily 10. Zantac 150 mg Oral tab 1 tab nightly 11. Tylenol 325 mg Oral tab 2 tabs every 4 hours (Last dose: 04/02/2016 09:00) - PMHx: enlarged prostate; GERD; Hypercholesterolemia; Hypertension; Hypothyroidism; Cancer, Skin; - PSHx: Hernia repair; Thyroid Surgery; Pacemaker Insertion (November 2011); - Social history: Smoking status: Patient states former smoker of tobacco. No barriers to communication noted, The patient speaks fluent Somali, Speaks appropriately for age. - Family history: Not pertinent. - : The pt / caregiver states he / she is not on anticoagulants. Home medication list is obtained from the patient. - Exposure Risk Screening:: None identified. Vital Signs: 04/02 10:10 BP 152 / 91; Pulse 90; Resp 16; Temp 96.6; Pulse Ox 98% on R/A; Weight 74.84 kg / elp 164.99 lbs (R); Height 5 ft. 7 in. (170.18 cm) (R); 10:26 BP 119 / 67 (auto/); pml 10:29 Pulse Ox 99% ; pml 11:11 BP 133 / 62 Sitting; Pulse 65; pml 11:11 BP 146 / 71 LA Supine; Pulse 60; pml 11:11 BP 126 / 63 Standing; Pulse 64; pml 11:45 BP 134 / 76 (auto/); pml 11:46 Pulse 60 MON; Pulse Ox 97% ; pml 11:56 Pulse 62 MON; Pulse Ox 96% ; pml 12:00 BP 139 / 76 (auto/); pml 12:21 BP 136 / 72; Pulse 61; Resp 18; Temp 97.6; Pulse Ox 99% ; pml 10:10 Body Mass Index 25.84 (74.84 kg, 170.18 cm) elp MDM: 10:43 IV Saline Lock ordered. ml 10:43 Founder And President/Pulse Ox/q 15 min VS ordered. ml 10:43 Rhythm Strip to chart ordered. ml 10:44 Orthostatic VS ordered. ml 10:44 ECG WITH READING ER PHYS+CARDIAG ordered. EDMS 10:45 CBC with Diff Ordered. EDMS 10:45 MED Profile Ordered. EDMS 10:45 CIP Ordered. EDMS 10:45 Troponin Ordered. EDMS 10:45 TSH with Free T4 Ordered. EDMS 10:45 Chest, 1 View Ordered. EDMS 10:45 CT Head Without Contrast Ordered. EDMS 10:45 Financial registration complete. gb 11:07 [facility] Payment Agreement was scanned into MED[employer] and attached to record. gb 11:30 CBC with Diff Reviewed. ml 11:57 MED Profile Reviewed. ml 11:57 CIP Reviewed. ml 11:57 Troponin Reviewed. ml 11:57 TSH with Free T4 Reviewed. ml 16:59 T-Sheet-- Draft Copy [facility] into [facility] and attached to record. klr 04/03 17:57 ECG/EKG was scanned into [facility] and attached to record. kf3 Signatures: Dispatcher [employer] EDMS Carolyn Fragoso MD MD ml Carol Zarate, Reg Reg gb Bennie Dempsey RN RN mlb1 Jose Raya, Reg Reg kf3 Garrett,Irma,Juhi Gonzalez RN The chart was reviewed and I authenticate all verbal orders and agree with the evaluation and treatment provided.Attachments: 04/02 11:07 [facility] [place] Agreement gb 16:59 T-Sheet-- Draft Copy klr 04/03 17:57 ECG/EKG kf3 Chart Complete MTDD
--- NOTE | 2016-04-04 13:23 | EDDOCDS ---
Nurse's Notes [facility] Name: Nicolasa Gottlieb Age: 89 yrs Sex: Male : 1925 Arrival Date: 04/02/2016 Time: 10:08 Bed 12 Private MD: Florencio Daigle H. Diagnosis: Headache;Dizziness and giddiness Presentation: 04/02 10:14 Presenting complaint: Patient states: Headache and dizziness began last night. This mlb1 patient has no additional risk factors. Adult Sepsis Screening: The patient does not have new or worsening altered mentation. Patient's respiratory rate is less than 22. Systolic blood pressure is greater than 100. Patient has a qSOFA score of 0- Negative Sepsis Screen. No known or suspected infection- Negative Sepsis Screen. Suicide/Homicide risk assessment- the patient denies having any suicidal and/or homicidal ideations and does not present with any other emotional, behavioral or mental health complaints. Status: Patient is not a enrollment services dean or dependent. Transition of care: patient was not received from another setting of care. 10:14 Acuity: FABIO Level 3 mlb1 10:14 Method Of Arrival: Walkin/Carried/Asstd mlb1 Triage Assessment: 10:18 Headache History: This patient does not have a history of previous headaches. General: mlb1 Appears in no apparent distress, Behavior is appropriate for age, cooperative. Pain: Location: head Pain currently is 5 out of 10 on a pain scale. Neurological: Level of Consciousness is awake, alert, Oriented to person, place, time, Moves all extremities. Full function Facial symmetry appears normal, Reports dizziness. Historical: - Allergies: Omeprazole (Rash); Vasotec (Anaphylaxis); - Home Meds: 1. amlodipine 10 mg Oral tab 1 tab nightly 2. aspirin 81 mg Oral tab 1 tab once daily 3. calcitrol 0.25 mg daily 4. Flomax 0.4 mg Oral cp24 1 cap nightly 5. levothyroxine 137 mcg Oral tab 1 cap once daily 6. multivitamin Oral tab 1 tab daily 7. pravastatin 40 mg oral tab 1 tab nightly 8. Protonix 40 mg Oral TbEC 1 tab 2 times per day 9. Vitamin D Oral 1000 unit daily 10. Zantac 150 mg Oral tab 1 tab nightly 11. Tylenol 325 mg Oral tab 2 tabs every 4 hours (Last dose: 04/02/2016 09:00) - PMHx: enlarged prostate; GERD; Hypercholesterolemia; Hypertension; Hypothyroidism; Cancer, Skin; - PSHx: Hernia repair; Thyroid Surgery; Pacemaker Insertion (November 2011); - Social history: Smoking status: Patient states former smoker of tobacco. No barriers to communication noted, The patient speaks fluent Nepali, Speaks appropriately for age. - Family history: Not pertinent. - : The pt / caregiver states he / she is not on anticoagulants. Home medication list is obtained from the patient. - Exposure Risk Screening:: None identified. Screenin:28 Screening information is obtained from the patient. Fall risk: No risks identified. pml Assistance ADL's: requires no assistance with activities of daily living. Abuse/DV Screen: The patient / caregiver reports he/she is: not in a situation that causes fear, pain or injury. Nutritional screening: No deficits noted. Advance Directives: Currently, there is no health care proxy. home support is adequate. Assessment: 10:28 General: Appears in no apparent distress, Behavior is appropriate for age, cooperative. pml Pain: Location: head Pain currently is 5 out of 10 on a pain scale. Neurological: Level of Consciousness is awake, alert, Oriented to person, place, time. Neurological: Husbandry Technician are equal bilaterally Moves all extremities. Gait is steady, Speech is normal, Facial symmetry appears normal, Pupils are PERRLA. Cardiovascular: Capillary refill < 3 seconds. Respiratory: Airway is patent Respiratory effort is even, unlabored. GI: Abdomen is non- distended. Derm: Skin is pink, warm & dry. 11:30 General: restign on stretcher, resp easy and unlabored, skin p/w/d. sinus rhythm on pml monitor without ectopy. 12:20 General: Appears in no apparent distress, Behavior is appropriate for age, cooperative. pml Pain: Denies pain. Neurological: Level of Consciousness is awake, alert, Oriented to person, place, time. Cardiovascular: Capillary refill < 3 seconds. Respiratory: Airway is patent Respiratory effort is even, unlabored. Derm: Skin is pink, warm & dry. Vital Signs: 10:10 BP 152 / 91; Pulse 90; Resp 16; Temp 96.6; Pulse Ox 98% on R/A; Weight 74.84 kg (R); elp Height 5 ft. 7 in. (170.18 cm) (R); 10:26 BP 119 / 67 (auto/); pml 10:29 Pulse Ox 99% ; pml 11:11 BP 133 / 62 Sitting; Pulse 65; pml 11:11 BP 146 / 71 LA Supine; Pulse 60; pml 11:11 BP 126 / 63 Standing; Pulse 64; pml 11:45 BP 134 / 76 (auto/); pml 11:46 Pulse 60 MON; Pulse Ox 97% ; pml 11:56 Pulse 62 MON; Pulse Ox 96% ; pml 12:00 BP 139 / 76 (auto/); pml 12:21 BP 136 / 72; Pulse 61; Resp 18; Temp 97.6; Pulse Ox 99% ; pml 10:10 Body Mass Index 25.84 (74.84 kg, 170.18 cm) [facility] Vitals: 10:10 Log In Time: April 02, 2016 at 10:08. elp ED Course: 10:10 Patient visited by Keily Joshua PCA. elp 10:10 Florencio Daigle is Private Physician. elp 10:10 Patient moved to Waiting elp 10:11 Patient visited by Keily Joshua PCA. elp 10:11 Patient moved to Pre RCE elp 10:14 Patient visited by Bennie Dempsey, RN. mlb1 10:16 Triage Initiated mlb1 10:19 Patient visited by Bennie Dempsey, RN. mlb1 10:19 Irma Tucker,RN is Primary Nurse. ck1 10:19 Patient moved to Triage 1 mlb1 10:19 Patient moved to 12 ck1 10:28 The patient / caregiver is instructed regarding the plan of care and ED course. Patient margie has correct armband on for positive identification. Placed in gown. Bed in low position. Call light in reach. Side rails up X2. 10:30 Patient visited by Irma Tucker,RN. pml 10:31 Carolyn Fragoso MD is Attending Physician. ml 10:31 Patient visited by Carolyn Fragoso MD. ml 11:06 EKG done. (by ED staff). Reviewed by Carolyn Fragoso MD. jrd 11:07 [facility] Payment Agreement was scanned into [employer] and attached to record. gb 11:11 Inserted peripheral IV: 20gauge IV in right antecubital area and blood collected. pml Patient tolerated the procedure well. 11:12 Patient visited by Irma Tucker RN. pml 12:14 Florencio Daigle is Referral Physician. ml 12:14 Leticia Shah RNNP is Referral Physician. ml 12:21 Discontinued lock intact, bleeding controlled, pressure dressing applied, No pml redness/swelling at site. No procedures done that require assistance. 13:31 CT Head Without Contrast Returned. EDMS 13:31 Chest, 1 View Returned. EDMS 16:59 T-Sheet-- Draft Copy was scanned into [employer] and attached to record. klr 04/03 06:44 EKG-ADULT Returned. EDMS 17:57 ECG/EKG was scanned into [employer] and attached to record. kf3 Order Results: Lab Order: CBC with Diff; SPEC'M 04/02/16 11:04 Test: WHITE BLOOD COUNT; Value: 5.9; Range: 4.0-10.0; Units: K/mm3; Status: F Test: RED BLOOD COUNT; Value: 4.74; Range: 4.30-6.10; Units: M/mm3; Status: F Test: HEMOGLOBIN; Value: 14.1; Range: 14.0-18.0; Units: g/dl; Status: F Test: HEMATOCRIT; Value: 43.6; Range: 42.0-52.0; Units: %; Status: F Test: MEAN CORPUSCULAR VOLUME; Value: 92.0; Range: 80.0-96.0; Units: fl; Status: F Test: MEAN CORPUSCULAR HEMOGLOBIN; Value: 29.8; Range: 27.0-33.0; Units: pg; Status: F Test: MEAN CORPUSCULAR HGB CONC; Value: 32.3; Range: 32.0-36.5; Units: g/dl; Status: F Test: RED CELL DISTRIBUTION WIDTH; Value: 12.9; Range: 11.5-14.5; Units: %; Status: F Test: PLATELET COUNT, AUTOMATED; Value: 209; Range: 150-450; Units: k/mm3; Status: F Test: NEUTROPHILS %; Value: 75.7; Range: 36.0-66.0; Abnormal: Above high normal; Units: %; Status: F Test: LYMPH %; Value: 12.3; Range: 24.0-44.0; Abnormal: Below low normal; Units: %; Status: F Test: MONO %; Value: 5.7; Range: 0.0-5.0; Abnormal: Above high normal; Units: %; Status: F Test: EOS %; Value: 3.2; Range: 0.0-3.0; Abnormal: Above high normal; Units: %; Status: F Test: BASO %; Value: 0.6; Range: 0.0-1.0; Units: %; Status: F Test: LARGE UNSTAINED CELL %; Value: 2.5; Range: 0.0-4.0; Units: %; Status: F Test: NEUTROPHILS #; Value: 4.5; Range: 1.8-7.7; Units: K/mm3; Status: F Test: LYMPH #; Value: 0.7; Range: 1.5-4.5; Abnormal: Below low normal; Units: K/mm3; Status: F Test: MONO #; Value: 0.3; Range: 0.0-0.8; Units: K/mm3; Status: F Test: EOS #; Value: 0.2; Range: 0.0-0.50; Units: K/mm3; Status: F Test: BASO #; Value: 0.0; Range: 0.0-0.2; Units: K/mm3; Status: F Test: LARGE UNSTAINED CELL #; Value: 0.2; Range: 0.0-0.4; Units: K/mm3; Status: F Lab Order: [facility]; [facility] 04/02/16 11:04 Test: GLUCOSE, FASTING; Value: 95; Range: 83-110; Units: MG/DL; Status: F Test: BLOOD UREA NITROGEN; Value: 35; Range: 7-18; Abnormal: Above high normal; Units: MG/DL; Status: F Test: CREATININE FOR GFR; Value: 2.05; Range: 0.70-1.30; Abnormal: Above high normal; Units: MG/DL; Status: F Test: GLOMERULAR FILTRATION RATE; Value: 32.7; Range: >35; Abnormal: Below low normal; Status: F Test: SODIUM LEVEL; Value: 142; Range: 136-145; Units: MEQ/L; Status: F Test: POTASSIUM SERUM; Value: 4.4; Range: 3.5-5.1; Units: MEQ/L; Status: F Test: CHLORIDE LEVEL; Value: 108; Range: 98-107; Abnormal: Above high normal; Units: MEQ/L; Status: F Test: CARBON DIOXIDE LEVEL; Value: 28; Range: 21-32; Units: MEQ/L; Status: F Test: ANION GAP; Value: 6; Range: 8-16; Abnormal: Below low normal; Units: MEQ/L; Status: F Test: CALCIUM LEVEL; Value: 8.7; Range: 8.8-10.2; Abnormal: Below low normal; Units: MG/DL; Status: F Test Note: ; Units are mL/min/1.73 m2 Chronic Kidney Disease Staging per NKF: Stage I & II GFR >=60 Normal to Mildly Decreased Stage III GFR 30-59 Moderately Decreased Stage IV GFR 15-29 Severely Decreased Stage V GFR <15 Very Little GFR Left ESRD GFR <15 on PATCH WORKER Lab Order: CIP; SPEC'04/02/16 11:04 Test: CPK CREATINE PHOSPHOKINASE; Value: 73; Range: 39-308; Units: U/L; Status: F Test: CK-MB VALUE MASS; Value: 2.8; Range: 0.0-3.6; Units: NG/ML; Status: F Test: MB/CK RELATIVE INDEX; Value: 3.83; Range: < OR =4; Status: F Test Note: ; DIAGNOSIS CRITERIA MMB ng/ml Relative Index (RI) NON-AMI < or = 5 N/A [place]ONE > 5 < or = 4 AMI > 5 > 4 Lab Order: Troponin; SPEC'04/02/16 11:04 Test: TROPONIN I; Value: 0.02; Range: < 0.10; Units: NG/ML; Status: F Test Note: ; Troponin I Reference Interval for Other Machine LOCI: 99th Percentile= 0.00-0.045 ng/ml Risk Stratification: <= 0.10 ng/ml Decreased Risk for Adverse Clinical Events. 0.10-1.50 ng/ml Increased Risk for Adverse Clinical Events. Evaluation of additional criterion and/or repeat testing in 2-6 hours is suggested to rule out myocardial damage. >= 1.50 ng/ml Indicative of Myocardial Injury. Lab Order: TSH with Free T4; SPEC'M 04/02/16 11:04 Test: THYROID STIMULATING HORMONE; Value: 0.975; Range: 0.358-3.740; Units: uIU/ML; Status: F Test: FREE T4; Value: 1.34; Range: 0.76-1.46; Units: NG/DL; Status: F Radiology Order: EKG-ADULT Test: EKG-ADULT REASON FOR EXAMINATION: dizzy; Stationary ECG Study; [facility] - ED; ; Test Date: 2016-04-02; Pat Name: NICOLASA GOTTLIEB Department:; Room: -; Gender: M Electricians Top Helper: dali; : 1925 Requested By: Carolyn Fragoso; Order Number: [id number] Reading MD: Carolyn Fragoso; Measurements; Intervals [place]; Rate: 62 P: 51; MS: 174 QRS: -64; QRSD: 130 T: 26; QT: 478; QTc: 486; Interpretive Statements; SINUS RHYTHM WITH OCCASIONAL VENTRICULAR PREMATURE COMPLEXES; MARKED LEFT AXIS DEVIATION; LEFT BUNDLE BRANCH BLOCK; ; CW 04/10/15 - RATE DECREASED; Electronically Signed On 04-03-2016 6:27:57 EST by Carolyn Fragoso; Radiology Order: CT Head Without Contrast Test: CT Head Without Contrast REASON FOR EXAMINATION: headache, dizzy; CT BRAIN WITHOUT CONTRAST: 04/02/2016.; ; Clinical history headache, dizziness.; ; Comparison 03/26/2016, 10/25/2013.; ; Findings: Ventricles are midline, symmetric and without dilatation. There is; mild diffuse cerebral atrophy, age appropriate and proportionate to the; ventricular size, greatest in the temporal and frontal lobes. Some diffuse; cerebellar atrophy is noted also fairly mild. Heterogeneous low attenuation; white matter changes seen bilaterally suggesting small vessel white matter; ischemic disease. I see no vascular territory infarct, hemorrhage, mass or mass; effect. Brainstem unremarkable. Basal cisterns intact. The mastoids were; symmetric. Visualized sinuses clear. The calvarium and skull base are without; fracture or focal lesion.; ; Impression:; ; 1. No acute infarct, hemorrhage, mass, mass effect or edema.; ; 2. 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 Stable.; ; 3. Sinuses, mastoids, skull base and calvarium without acute finding.; ; ; Signed by; Nadir Parks MD 04/02/2016 07:36 P; Radiology Order: Chest, 1 View Test: Chest, 1 View REASON FOR EXAMINATION: dizzy; PA CHEST: 04/02/2016.; ; Comparison: AP portable chest 10/25/2013, 2 view chest 12/16/2011.; ; Clinical history: Dizziness.; ; Dual lead pacer is again seen better level of inflation noted. Heart size not; grossly enlarged but has left ventricular configuration. The aorta is ectatic; and tortuous but unchanged. Airway midline. No mediastinal or hilar mass. No; acute infiltrate or pleural effusion. There are surgical clips and bilateral; neck base. Degenerative changes shoulders and spine as before.; ; Impression:; ; 1. Dual lead pacer with leads in the right atrium and right ventricle,; borderline heart size with left ventricular configuration but no edema, effusion; or acute infiltrate.; ; ; Signed by; Nadir Parks MD 04/02/2016 07:36 P; Outcome: 04/02 12:15 Discharge ordered by Provider. ml 12:21 Discharge Assessment: Patient awake, alert and oriented x 3. No cognitive and/or pml functional deficits noted. Patient verbalized understanding of disposition instructions. patient administered narcotics - no. The following High Risk Discharge criteria are identified: None. Discharged to home ambulatory. Condition: good Condition: stable. Discharge instructions given to patient, Instructed on discharge instructions, follow up and referral plans. Demonstrated understanding of instructions, Pt was receptive of discharge instructions/ teaching. CT Study completed. Property sent home with patient. 12:22 Patient left the ED. pml Signatures: Dispatcher [employer] EDMS Carolyn Fragoso MD MD ml Carol Zarate, Reg Reg gb Bennie Dempsey RN RN mlb1 Shirley Sarmiento RN RN ck1 Jose Raya, Reg Reg kf3 Irma Tucker RN RN pml Keily Joshua, MANAGER BUSINESS MANAGEMENT MANAGER BUSINESS MANAGEMENT keip Jose Rivera, MANAGER BUSINESS MANAGEMENT MANAGER BUSINESS MANAGEMENT Juhi Lockhart Chart Complete MTDD
== END 2016-04-02 12:22 | disposition home or self-care (01) ==
LOC: M ED 10:08
DX: R51 Headache (principal); R42 Dizziness and giddiness; N40.0 Benign prostatic hyperplasia without lower urinary tract symptoms; K21.9 Gastro-esophageal reflux disease without esophagitis; E78.00 Pure hypercholesterolemia, unspecified; I10 Essential (primary) hypertension; E03.9 Hypothyroidism, unspecified; Z85.828 Personal history of other malignant neoplasm of skin; Z95.0 Presence of cardiac pacemaker; Z87.891 Personal history of nicotine dependence; Z79.82 Long term (current) use of aspirin; Z79.899 Other long term (current) drug therapy; Z88.8 Allergy status to other drugs, medicaments and biological substances

== ENCOUNTER 2016-04-09 18:34 | Emergency (ER) | payer MEDICARE ==
--- NOTE | 2016-04-09 22:17 | EDDOCDS ---
Physician Documentation [facility] Name: Baldev Sanders Age: 89 yrs Sex: Male : 1925 Arrival Date: 04/09/2016 Time: 18:34 Bed TR7 Private MD: Florencio Daigle H. Disposition: 04/09/16 22:04 Discharged to Home/Self Care. Impression: Acute pain due to trauma - pain right ear following skin biopsy. - Condition is Stable. - Medication Reconciliation, Local Pharmacy Hours form. - Follow up: Private Physician; When: Call to arrange an appointment; Reason: Recheck today's complaints, Continuance of care. Follow up: Emergency Department; When: As needed; Reason: Fever > 102F, swelling or redness of the ear. - Problem is new. - Symptoms have improved. - Notes: continue wound care, pain medication as needed. 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 amlodipine 10 mg Oral tab 1 tab nightly (Last dose: 04/09/2016 18:00) 2. aspirin 81 mg Oral tab 1 tab once daily (Last dose: 04/09/2016 18:00) 3. calcitrol 0.25 mg daily (Last dose: 04/09/2016 08:00) 4. levothyroxine 137 mcg Oral tab 1 cap once daily (Last dose: 04/09/2016 08:00) 5. Flomax 0.4 mg Oral cp24 1 cap nightly (Last dose: 04/09/2016 08:00) 6. pravastatin 40 mg oral tab 1 tab nightly (Last dose: 04/09/2016 18:00) 7. Zantac 150 mg Oral tab 1 tab nightly (Last dose: 04/09/2016 18:00) 8. Vitamin D Oral 1000 unit daily (Last dose: 04/09/2016 08:00) 9. Protonix 40 mg Oral TbEC 1 tab 2 times per day (Last dose: 04/09/2016 18:00) 10. multivitamin Oral tab 1 tab daily (Last dose: 04/09/2016 08:00) 11. Tylenol 325 mg Oral tab 2 tabs every 4 hours (Last dose: 04/09/2016 15:00) - PMHx: Cancer, Skin; enlarged prostate; Hypercholesterolemia; GERD; Hypertension; Hypothyroidism; - PSHx: Hernia repair; Thyroid Surgery; Pacemaker Insertion (November 2011); - Social history: Smoking status: Patient states was never smoker of tobacco. No barriers to communication noted, The patient speaks fluent Slovenian, Speaks appropriately for age. - Family history: Not pertinent. - : The pt / caregiver states he / she is not on anticoagulants. Home medication list is obtained from the patient. - Exposure Risk Screening:: None identified. Vital Signs: 04/09 18:35 BP 126 / 82; Pulse 76; Resp 18 S; Temp 97.4(O); Pulse Ox 98% on R/A; Weight 77.11 kg / gr2 170 lbs (R); Height 5 ft. 7 in. (170.18 cm) (R); Pain 5/10; 22:02 BP 120 / 81; Pulse 72; Resp 18; Temp 97.3(O); Pulse Ox 97% on R/A; Pain 3/10; ct3 18:35 Body Mass Index 26.63 (77.11 kg, 170.18 cm) gr2 MDM: 21:30 [place] [place] Agreement was scanned into [employer] and attached to record. 21:36 Financial registration complete. gb Signatures: Carol Zarate, Reg Reg gb Tavo Orta PA-C PA-C ar2 Kaylah Muir,RN RN ld5 Zuri Diaz RN RN dsf The chart was reviewed and I authenticate all verbal orders and agree with the evaluation and treatment provided.Attachments: 21:30 [facility] Payment Agreement gb MTDD
--- NOTE | 2016-04-09 22:17 | EDDOCDS ---
Nurse's Notes [facility] Name: Baldev Sanders Age: 89 yrs Sex: Male : 1925 Arrival Date: 04/09/2016 Time: 18:34 Bed TR7 Private MD: Florencio Daigle H. Diagnosis: Acute pain due to trauma-pain right ear following skin biopsy Presentation: 04/09 18:42 Presenting complaint: Patient states: was here last week for right ear. pt states they dsf did a CT and they didn't find anything wrong. pt states the pain has moved back a little bit. This patient has no additional risk factors. Adult Sepsis Screening: The patient does not have new or worsening altered mentation. Patient's respiratory rate is less than 22. Systolic blood pressure is greater than 100. Patient has a qSOFA score of 0- Negative Sepsis Screen. Suicide/Homicide risk assessment- the patient denies having any suicidal and/or homicidal ideations and does not present with any other emotional, behavioral or mental health complaints. 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 Transition of care: patient was not received from another setting of care. 18:42 Acuity: FABIO Level 4 dsf 18:42 Method Of Arrival: Walkin/Carried/Asstd dsf Triage Assessment: 18:45 Headache History: This patient has a history of headaches and the character of this dsf headache is like all previous headaches. General: Appears in no apparent distress, Behavior is appropriate for age, cooperative. Pain: Location: right ear and right occipital area Pain currently is 5 out of 10 on a pain scale. Pain began 1 week ago Also complains of no other associated symptoms. Neurological: Level of Consciousness is awake, alert. Historical: - Allergies: Omeprazole (Rash); Vasotec (Anaphylaxis); - Home Meds: 1. amlodipine 10 mg Oral tab 1 tab nightly (Last dose: 04/09/2016 18:00) 2. aspirin 81 mg Oral tab 1 tab once daily (Last dose: 04/09/2016 18:00) 3. calcitrol 0.25 mg daily (Last dose: 04/09/2016 08:00) 4. levothyroxine 137 mcg Oral tab 1 cap once daily (Last dose: 04/09/2016 08:00) 5. Flomax 0.4 mg Oral cp24 1 cap nightly (Last dose: 04/09/2016 08:00) 6. pravastatin 40 mg oral tab 1 tab nightly (Last dose: 04/09/2016 18:00) 7. Zantac 150 mg Oral tab 1 tab nightly (Last dose: 04/09/2016 18:00) 8. Vitamin D Oral 1000 unit daily (Last dose: 04/09/2016 08:00) 9. Protonix 40 mg Oral TbEC 1 tab 2 times per day (Last dose: 04/09/2016 18:00) 10. multivitamin Oral tab 1 tab daily (Last dose: 04/09/2016 08:00) 11. Tylenol 325 mg Oral tab 2 tabs every 4 hours (Last dose: 04/09/2016 15:00) - PMHx: Cancer, Skin; enlarged prostate; Hypercholesterolemia; GERD; Hypertension; Hypothyroidism; - PSHx: Hernia repair; Thyroid Surgery; Pacemaker Insertion (November 2011); - Social history: Smoking status: Patient states was never smoker of tobacco. No barriers to communication noted, The patient speaks fluent Yakut, Speaks appropriately for age. - Family history: Not pertinent. - : The pt / caregiver states he / she is not on anticoagulants. Home medication list is obtained from the patient. - Exposure Risk Screening:: None identified. Screenin:14 Screening information is obtained from the patient. Fall risk: No risks identified. ld5 Assistance ADL's: requires no assistance with activities of daily living. Abuse/DV Screen: The patient / caregiver reports he/she is: not in a situation that causes fear, pain or injury. Nutritional screening: No deficits noted. Advance Directives: There is no active DNR order. home support is adequate. Assessment: 22:14 General: Appears in no apparent distress, Behavior is appropriate for age, cooperative. ld5 Pain: Location: right occipital area and right ear Pain currently is 4 out of 10 on a pain scale. Neurological: Level of Consciousness is awake, alert. EENT: Reports. Respiratory: Airway is patent Respiratory effort is even, unlabored. Vital Signs: 18:35 BP 126 / 82; Pulse 76; Resp 18 S; Temp 97.4(O); Pulse Ox 98% on R/A; Weight 77.11 kg gr2 (R); Height 5 ft. 7 in. (170.18 cm) (R); Pain 5/10; 22:02 BP 120 / 81; Pulse 72; Resp 18; Temp 97.3(O); Pulse Ox 97% on R/A; Pain 3/10; ct3 18:35 Body Mass Index 26.63 (77.11 kg, 170.18 cm) gr2 Vitals: 18:35 Log In Time: April 09, 2016 at 18:35. gr2 ED Course: 18:35 Patient visited by Jossie Nam. gr2 18:35 Florencio Daigle is Private Physician. gr2 18:35 Patient moved to Waiting gr2 18:37 Patient visited by Jossie Nam. gr2 18:37 Patient moved to Pre RCE gr2 18:43 Triage Initiated dsf 20:04 Patient moved to Triage 1 ct3 21:30 [facility] Payment Agreement was scanned into [employer] and attached to record. gb 21:31 T[facility] Orta [facility]-C [facility]. ar2 21:31 Jordin Pace DO is Attending Physician. ar2 21:35 Patient visited by Tavo Orta PA-C. ar2 22:05 Patient visited by Vidhya Moore PCA. ct3 22:13 Patient moved to TR7 ct3 22:14 The patient / caregiver is instructed regarding the plan of care and ED course. Patient ld5 has correct armband on for positive identification. 22:14 No IV's were initiated during this patient's visit. No procedures done that require ld5 assistance. 22:16 Patient visited by Kaylah Muir RN. ld5 Order Results: There are currently no results for this order. Outcome: 22:04 Discharge ordered by Provider. ar2 22:14 Discharge Assessment: Patient awake, alert and oriented x 3. No cognitive and/or ld5 functional deficits noted. Patient verbalized understanding of disposition instructions. patient administered narcotics - no. The following High Risk Discharge criteria are identified: None. Discharged to home ambulatory. Condition: stable. Discharge instructions given to patient, Instructed on discharge instructions, follow up and referral plans. Demonstrated understanding of instructions, Pt was receptive of discharge instructions/ teaching. No special radiology studies were completed. Property :Personal belongings accompany Pt. 22:16 Patient left the ED. ld5 Signatures: Carol Zarate, Reg Reg gb Tavo Orta PALexis PARubenC ar2 Kaylah Muir,RN RN ld5 Vidhya Moore, SPORTS BOOKMAKER SPORTS BOOKMAKER ct3 Zuri Diaz,RN RN dsf Jossie Nam gr2 MTDD
--- NOTE | 2016-04-11 23:17 | EDDOCDS ---
Physician Documentation [facility] Name: Baldev Sanders Age: 89 yrs Sex: Male : 1925 Arrival Date: 04/09/2016 Time: 18:34 Bed TR7 Private MD: Florencio Daigle H. Disposition: 04/09/16 22:04 Discharged to Home/Self Care. Impression: Acute pain due to trauma - pain right ear following skin biopsy. - Condition is Stable. - Medication Reconciliation, Local Pharmacy Hours form. - Follow up: Private Physician; When: Call to arrange an appointment; Reason: Recheck today's complaints, Continuance of care. Follow up: Emergency Department; When: As needed; Reason: Fever > 102F, swelling or redness of the ear. - Problem is new. - Symptoms have improved. - Notes: continue wound care, pain medication as needed. call enrollment management manager for follow up Historical: - Allergies: Omeprazole (Rash); Vasotec (Anaphylaxis); - Home Meds: 1. amlodipine 10 mg Oral tab 1 tab nightly (Last dose: 04/09/2016 18:00) 2. aspirin 81 mg Oral tab 1 tab once daily (Last dose: 04/09/2016 18:00) 3. calcitrol 0.25 mg daily (Last dose: 04/09/2016 08:00) 4. levothyroxine 137 mcg Oral tab 1 cap once daily (Last dose: 04/09/2016 08:00) 5. Flomax 0.4 mg Oral cp24 1 cap nightly (Last dose: 04/09/2016 08:00) 6. pravastatin 40 mg oral tab 1 tab nightly (Last dose: 04/09/2016 18:00) 7. Zantac 150 mg Oral tab 1 tab nightly (Last dose: 04/09/2016 18:00) 8. Vitamin D Oral 1000 unit daily (Last dose: 04/09/2016 08:00) 9. Protonix 40 mg Oral TbEC 1 tab 2 times per day (Last dose: 04/09/2016 18:00) 10. multivitamin Oral tab 1 tab daily (Last dose: 04/09/2016 08:00) 11. Tylenol 325 mg Oral tab 2 tabs every 4 hours (Last dose: 04/09/2016 15:00) - PMHx: Cancer, Skin; enlarged prostate; Hypercholesterolemia; GERD; Hypertension; Hypothyroidism; - PSHx: Hernia repair; Thyroid Surgery; Pacemaker Insertion (November 2011); - Social history: Smoking status: Patient states was never smoker of tobacco. No barriers to communication noted, The patient speaks fluent Mongolian, Speaks appropriately for age. - Family history: Not pertinent. - : The pt / caregiver states he / she is not on anticoagulants. Home medication list is obtained from the patient. - Exposure Risk Screening:: None identified. Vital Signs: 04/09 18:35 BP 126 / 82; Pulse 76; Resp 18 S; Temp 97.4(O); Pulse Ox 98% on R/A; Weight 77.11 kg / gr2 170 lbs (R); Height 5 ft. 7 in. (170.18 cm) (R); Pain 5/10; 22:02 BP 120 / 81; Pulse 72; Resp 18; Temp 97.3(O); Pulse Ox 97% on R/A; Pain 3/10; ct3 18:35 Body Mass Index 26.63 (77.11 kg, 170.18 cm) gr2 MDM: 21:30 [facility] [place] Agreement was scanned into [employer] and attached to record. 21:36 Financial registration complete. gb 04/10 12:15 T-Sheet-- Draft Copy was scanned into [employer] and attached to record. lg Signatures: Carol Zarate, Reg Reg gb Munira Collado, Reg Reg lg Tavo Orta, DAVIS CANNON ar2 Kaylah MuirRN RN ld5 Zuri Diaz RN RN dsf The chart was reviewed and I authenticate all verbal orders and agree with the evaluation and treatment provided.Attachments: 04/09 21:30 [facility] [place] Agreement 04/10 12:15 T-Sheet-- Draft Copy lg Chart Complete MTDD
--- NOTE | 2016-04-11 23:17 | EDDOCDS ---
Physician Documentation [facility] Name: Baldev Sanders Age: 89 yrs Sex: Male : 1925 Arrival Date: 04/09/2016 Time: 18:34 Bed TR7 Private MD: Florencio Daigle H. Disposition: 04/09/16 22:04 Discharged to Home/Self Care. Impression: Acute pain due to trauma - pain right ear following skin biopsy. - Condition is Stable. - Medication Reconciliation, Local Pharmacy Hours form. - Follow up: Private Physician; When: Call to arrange an appointment; Reason: Recheck today's complaints, Continuance of care. Follow up: Emergency Department; When: As needed; Reason: Fever > 102F, swelling or redness of the ear. - Problem is new. - Symptoms have improved. - Notes: continue wound care, pain medication as needed. call hyperbaric tech for follow up Historical: - Allergies: Omeprazole (Rash); Vasotec (Anaphylaxis); - Home Meds: 1. amlodipine 10 mg Oral tab 1 tab nightly (Last dose: 04/09/2016 18:00) 2. aspirin 81 mg Oral tab 1 tab once daily (Last dose: 04/09/2016 18:00) 3. calcitrol 0.25 mg daily (Last dose: 04/09/2016 08:00) 4. levothyroxine 137 mcg Oral tab 1 cap once daily (Last dose: 04/09/2016 08:00) 5. Flomax 0.4 mg Oral cp24 1 cap nightly (Last dose: 04/09/2016 08:00) 6. pravastatin 40 mg oral tab 1 tab nightly (Last dose: 04/09/2016 18:00) 7. Zantac 150 mg Oral tab 1 tab nightly (Last dose: 04/09/2016 18:00) 8. Vitamin D Oral 1000 unit daily (Last dose: 04/09/2016 08:00) 9. Protonix 40 mg Oral TbEC 1 tab 2 times per day (Last dose: 04/09/2016 18:00) 10. multivitamin Oral tab 1 tab daily (Last dose: 04/09/2016 08:00) 11. Tylenol 325 mg Oral tab 2 tabs every 4 hours (Last dose: 04/09/2016 15:00) - PMHx: Cancer, Skin; enlarged prostate; Hypercholesterolemia; GERD; Hypertension; Hypothyroidism; - PSHx: Hernia repair; Thyroid Surgery; Pacemaker Insertion (November 2011); - Social history: Smoking status: Patient states was never smoker of tobacco. No barriers to communication noted, The patient speaks fluent Tajik, Speaks appropriately for age. - Family history: Not pertinent. - : The pt / caregiver states he / she is not on anticoagulants. Home medication list is obtained from the patient. - Exposure Risk Screening:: None identified. Vital Signs: 04/09 18:35 BP 126 / 82; Pulse 76; Resp 18 S; Temp 97.4(O); Pulse Ox 98% on R/A; Weight 77.11 kg / gr2 170 lbs (R); Height 5 ft. 7 in. (170.18 cm) (R); Pain 5/10; 22:02 BP 120 / 81; Pulse 72; Resp 18; Temp 97.3(O); Pulse Ox 97% on R/A; Pain 3/10; ct3 18:35 Body Mass Index 26.63 (77.11 kg, 170.18 cm) gr2 MDM: 21:30 [facility] [place] Payment Agreement was scanned into [employer] and attached to record. 21:36 Financial registration complete. gb 04/10 12:15 T-Sheet-- Draft Copy was scanned into [employer] and attached to record. lg Signatures: Carol Zarate, Reg Reg gb Munira Collado, Reg Reg lg Tavo Orta, DAVIS CANNON ar2 Kaylah MuirRN RN ld5 Zuri Diaz RN RN dsf The chart was reviewed and I authenticate all verbal orders and agree with the evaluation and treatment provided.Attachments: 04/09 21:30 [facility] [place] Payment Agreement 04/10 12:15 T-Sheet-- Draft Copy lg Chart Complete MTDD
--- NOTE | 2016-04-11 23:18 | EDDOCDS ---
Nurse's Notes [facility] Name: Baldev Sanders Age: 89 yrs Sex: Male : 1925 Arrival Date: 04/09/2016 Time: 18:34 Bed TR7 Private MD: Florencio Daigle H. Diagnosis: Acute pain due to trauma-pain right ear following skin biopsy Presentation: 04/09 18:42 Presenting complaint: Patient states: was here last week for right ear. pt states they dsf did a CT and they didn't find anything wrong. pt states the pain has moved back a little bit. This patient has no additional risk factors. Adult Sepsis Screening: The patient does not have new or worsening altered mentation. Patient's respiratory rate is less than 22. Systolic blood pressure is greater than 100. Patient has a qSOFA score of 0- Negative Sepsis Screen. Suicide/Homicide risk assessment- the patient denies having any suicidal and/or homicidal ideations and does not present with any other emotional, behavioral or mental health complaints. 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 Transition of care: patient was not received from another setting of care. 18:42 Acuity: FABIO Level 4 dsf 18:42 Method Of Arrival: Walkin/Carried/Asstd dsf Triage Assessment: 18:45 Headache History: This patient has a history of headaches and the character of this dsf headache is like all previous headaches. General: Appears in no apparent distress, Behavior is appropriate for age, cooperative. Pain: Location: right ear and right occipital area Pain currently is 5 out of 10 on a pain scale. Pain began 1 week ago Also complains of no other associated symptoms. Neurological: Level of Consciousness is awake, alert. Historical: - Allergies: Omeprazole (Rash); Vasotec (Anaphylaxis); - Home Meds: 1. amlodipine 10 mg Oral tab 1 tab nightly (Last dose: 04/09/2016 18:00) 2. aspirin 81 mg Oral tab 1 tab once daily (Last dose: 04/09/2016 18:00) 3. calcitrol 0.25 mg daily (Last dose: 04/09/2016 08:00) 4. levothyroxine 137 mcg Oral tab 1 cap once daily (Last dose: 04/09/2016 08:00) 5. Flomax 0.4 mg Oral cp24 1 cap nightly (Last dose: 04/09/2016 08:00) 6. pravastatin 40 mg oral tab 1 tab nightly (Last dose: 04/09/2016 18:00) 7. Zantac 150 mg Oral tab 1 tab nightly (Last dose: 04/09/2016 18:00) 8. Vitamin D Oral 1000 unit daily (Last dose: 04/09/2016 08:00) 9. Protonix 40 mg Oral TbEC 1 tab 2 times per day (Last dose: 04/09/2016 18:00) 10. multivitamin Oral tab 1 tab daily (Last dose: 04/09/2016 08:00) 11. Tylenol 325 mg Oral tab 2 tabs every 4 hours (Last dose: 04/09/2016 15:00) - PMHx: Cancer, Skin; enlarged prostate; Hypercholesterolemia; GERD; Hypertension; Hypothyroidism; - PSHx: Hernia repair; Thyroid Surgery; Pacemaker Insertion (November 2011); - Social history: Smoking status: Patient states was never smoker of tobacco. No barriers to communication noted, The patient speaks fluent Slovak, Speaks appropriately for age. - Family history: Not pertinent. - : The pt / caregiver states he / she is not on anticoagulants. Home medication list is obtained from the patient. - Exposure Risk Screening:: None identified. Screenin:14 Screening information is obtained from the patient. Fall risk: No risks identified. ld5 Assistance ADL's: requires no assistance with activities of daily living. Abuse/DV Screen: The patient / caregiver reports he/she is: not in a situation that causes fear, pain or injury. Nutritional screening: No deficits noted. Advance Directives: There is no active DNR order. home support is adequate. Assessment: 22:14 General: Appears in no apparent distress, Behavior is appropriate for age, cooperative. ld5 Pain: Location: right occipital area and right ear Pain currently is 4 out of 10 on a pain scale. Neurological: Level of Consciousness is awake, alert. EENT: Reports. Respiratory: Airway is patent Respiratory effort is even, unlabored. Vital Signs: 18:35 BP 126 / 82; Pulse 76; Resp 18 S; Temp 97.4(O); Pulse Ox 98% on R/A; Weight 77.11 kg gr2 (R); Height 5 ft. 7 in. (170.18 cm) (R); Pain 5/10; 22:02 BP 120 / 81; Pulse 72; Resp 18; Temp 97.3(O); Pulse Ox 97% on R/A; Pain 3/10; ct3 18:35 Body Mass Index 26.63 (77.11 kg, 170.18 cm) gr2 Vitals: 18:35 Log In Time: April 09, 2016 at 18:35. gr2 ED Course: 18:35 Patient visited by Jossie Nam. gr2 18:35 Florencio Daigle is Private Physician. gr2 18:35 Patient moved to Waiting gr2 18:37 Patient visited by Jossie Nam. gr2 18:37 Patient moved to Pre RCE gr2 18:43 Triage Initiated dsf 20:04 Patient moved to Triage 1 ct3 21:30 [facility] Payment Agreement was scanned into [employer] and attached to record. gb 21:31 T[facility] Orta [facility]-C [facility] ar2 21:31 Jordin Pace DO is Attending Physician. ar2 21:35 Patient visited by Tavo Orta PA-C. ar2 22:05 Patient visited by Vidhya Moore PCA. ct3 22:13 Patient moved to TR7 ct3 22:14 The patient / caregiver is instructed regarding the plan of care and ED course. Patient ld5 has correct armband on for positive identification. 22:14 No IV's were initiated during this patient's visit. No procedures done that require ld5 assistance. 22:16 Patient visited by Kaylah Muir RN. ld5 04/10 12:15 T-Sheet-- Draft Copy was scanned into [employer] and attached to record. lg Order Results: There are currently no results for this order. Outcome: 04/09 22:04 Discharge ordered by Provider. ar2 22:14 Discharge Assessment: Patient awake, alert and oriented x 3. No cognitive and/or ld5 functional deficits noted. Patient verbalized understanding of disposition instructions. patient administered narcotics - no. The following High Risk Discharge criteria are identified: None. Discharged to home ambulatory. Condition: stable. Discharge instructions given to patient, Instructed on discharge instructions, follow up and referral plans. Demonstrated understanding of instructions, Pt was receptive of discharge instructions/ teaching. No special radiology studies were completed. Property :Personal belongings accompany Pt. 22:16 Patient left the ED. ld5 Signatures: Carol Zarate, Reg Reg gb Munira Collado, Reg Reg lg Tavo Orta, DAVIS CANNON ar2 Kaylah Muir,RN RN ld5 Vidhya Moore, SPECIAL SERVICES COORDINATOR SPECIAL SERVICES COORDINATOR ct3 Zuri Diaz,PRANAV RN dsf Jossie Nam gr2 Chart Complete MTDD
== END 2016-04-09 22:16 | disposition home or self-care (01) ==
LOC: M ED 18:34
DX: H92.01 Otalgia, right ear (principal); Z98.890 Other specified postprocedural states; I10 Essential (primary) hypertension; E03.9 Hypothyroidism, unspecified; E78.00 Pure hypercholesterolemia, unspecified; K21.9 Gastro-esophageal reflux disease without esophagitis; N40.0 Benign prostatic hyperplasia without lower urinary tract symptoms; Z95.0 Presence of cardiac pacemaker; Z85.820 Personal history of malignant melanoma of skin; Z79.899 Other long term (current) drug therapy; Z79.82 Long term (current) use of aspirin; Z88.8 Allergy status to other drugs, medicaments and biological substances

== ENCOUNTER → 2016-05-18 | Outpatient (REF) | payer MEDICARE ==
[~2016-05-18] MED LIST changes: -COLA100C PO; +COLA100C3 PO
== END ==
LOC: M LAB REF 09:00
PROVIDERS: ATTEND Specialist
DX: L72.0 Epidermal cyst (principal)

== ENCOUNTER 2016-06-17 12:08 | Emergency (ER) | payer MEDICARE ==
[~2016-06-17] VITALS: Ht 170.2 cm; Wt 74.4 kg
[2016-06-17] MEDS ORDERED: AMOX875T PO (12:23)
[2016-06-17 13:39] VITALS: BP 136/71
== END 2016-06-17 13:44 | disposition home or self-care (01) ==
LOC: M ED 13:04
DX: Z48.89 Encounter for other specified surgical aftercare (principal); H92.01 Otalgia, right ear; R51 Headache; I10 Essential (primary) hypertension; E07.9 Disorder of thyroid, unspecified; N40.0 Benign prostatic hyperplasia without lower urinary tract symptoms; E78.9 Disorder of lipoprotein metabolism, unspecified; Z87.891 Personal history of nicotine dependence; Z88.8 Allergy status to other drugs, medicaments and biological substances; Z88.0 Allergy status to penicillin; Z79.899 Other long term (current) drug therapy; Z79.82 Long term (current) use of aspirin; Z79.2 Long term (current) use of antibiotics

== ENCOUNTER → 2016-07-02 | Outpatient (CLI) | payer MEDICARE ==
[~2016-07-02] MED LIST changes: +AMOX875T PO
[2016-07-02 19:25] LABS: MEAN CORPUSCULAR HEMOGLOBIN 30.8 pg (27.0-33.0); MEAN CORPUSCULAR HGB CONC 32.3 g/dl (32.0-36.5); MEAN CORPUSCULAR VOLUME 95.3 fl (80.0-96.0); RED CELL DISTRIBUTION WIDTH 13.4 % (11.5-14.5); WHITE BLOOD COUNT 7.2 K/mm3 (4.0-10.0)
--- NOTE | 2016-07-03 06:42 | REP ---
KUB ABDOMEN AND PELVIS: KUB film of abdomen and pelvis performed. Bowel gas pattern is normal with no obstruction. Metallic clips are seen in the right upper quadrant. Large calcification in the lower pelvis is unchanged. There are degenerative changes of the spine and hips. IMPRESSION: No evidence of bowel obstruction. Signed by Ramses Bocanegra MD 07/03/2016 07:48 P
== END ==
LOC: M WUC 13:14
PROVIDERS: ATTEND Physician Assistant
DX: K59.00 Constipation, unspecified (principal); R19.7 Diarrhea, unspecified

== ENCOUNTER 2016-09-21 13:53 | Emergency (ER) | payer MEDICARE ==
[~2016-09-21] VITALS: Ht 170.2 cm; Wt 74.0 kg
[~2016-09-21 13:53] MED LIST changes: -COLA100C3 PO; +COLA100C5 PO; -DEXI60CA PO; +DEXI60CA2 PO
[2016-09-21 15:07] LABS: MICROSCOPIC INDICATED? MAN YES (NO)
[2016-09-21 15:08] LABS: WBC, URINE 0-1 /hpf (0-3)
[2016-09-21 15:09] LABS: BACTERIA, URINE NONE SEEN; MICROSCOPIC EXAM PERFORMED; SQUAMOUS EPITHELIAL CELL URINE SMALL AMOUNT /hpf (SMALL AMT)
[2016-09-21 15:24] LABS: BASO % 0.6 % (0.0-1.0); EOS # 0.1 K/mm3 (0.0-0.50); LARGE UNSTAINED CELL # 0.1 K/mm3 (0.0-0.4); LARGE UNSTAINED CELL % 1.6 % (0.0-4.0); LYMPH # 0.9 K/mm3 (1.5-4.5); MEAN CORPUSCULAR HEMOGLOBIN 30.5 pg (27.0-33.0); MEAN CORPUSCULAR HGB CONC 33.7 g/dl (32.0-36.5); MEAN CORPUSCULAR VOLUME 90.6 fl (80.0-96.0); MONO # 0.5 K/mm3 (0.0-0.8); MONO % 6.2 % (0.0-5.0); NEUTROPHILS # 5.6 K/mm3 (1.8-7.7); NEUTROPHILS % 77.6 % (36.0-66.0); PLATELET COUNT, AUTOMATED 231 k/mm3 (150-450); RED CELL DISTRIBUTION WIDTH 12.8 % (11.5-14.5); WHITE BLOOD COUNT 7.2 K/mm3 (4.0-10.0)
[2016-09-21 15:30] LABS: INR 1.05
--- NOTE | 2016-09-21 15:44 | REP ---
CT abdomen and pelvis without contrast, 09/21/2016. Clinical history: Abdominal pain. Comparison 04/23/2009. Findings:CT abdomen: Lung bases show some minor dependent atelectatic change and fibrotic appearance in the medial basal segment right lower lobe. No effusion, infiltrate, nodule or mass. Heart with left atrial enlargement and some pacer wires evident. There is no pericardial thickening or effusion. No hiatal hernia. Liver shows no discrete mass, intrahepatic biliary dilatation nor adjacent ascites. No hepatosplenomegaly or focal splenic lesion. The gallbladder is absent with clips in the gallbladder fossa. Pancreas shows no mass, ductal dilatation or inflammatory change. Small kidneys with a cyst off the lower pole on the right and no hydronephrosis, stone or hydroureter. A few exophytic small cysts on the left. There is moderate stool scattered in the colon and scattered diverticula consistent with diverticulosis, but no definite diverticulitis in the abdominal portion of the colon. Small bowel loops were unremarkable without evidence of dilatation, air-fluid levels or adjacent inflammatory change. Lung window review of all CT slice levels shows no perforation or free air. Abdominal aorta is without aneurysm. There are a few calcifications. No periaortic or other retroperitoneal pathologic sized lymphadenopathy. Bone windows: Advanced degenerative disc changes throughout the lumbar spine with large anterior osteophytes and vacuum phenomenon from L1-2 through L4-5. Posterior osteophytes at all lumbar levels except L3-4. No compression deformity. There is facet arthropathy without spondylolysis. Visualized ribs intact. CT pelvis: Sacrum, SI joints, hips and symphysis pubis with degenerative change, but no destructive lesion or fracture. No AVN. Bladder minimally filled. Prostate is very large measuring 7 x 7 x 6.8 cm. A few calcifications are seen within. The distal left colon and sigmoid shows diverticulosis without diverticulitis. Small bowel loops in the pelvis were unremarkable. No ascites or adenopathy, ventral or inguinal hernia. I see no inflammatory change about the cecum. Impression: 1. No abdominal or pelvic lymphadenopathy, ascites, abscess or mass. 2. Diverticulosis without diverticulitis, colitis, stricture or mass. 3. Small bowel loops intact. 4. Significantly enlarged prostate 7 x 7 x 6.8 cm. Bladder only partially filled. No hydronephrosis or hydroureter. Kidneys are atrophic. No renal, ureteral or bladder stone. 5. Solid organs in the upper abdomen including liver, spleen, pancreas and adrenal glands are otherwise unremarkable. 6. No signs of obstruction. Small bowel loops intact. Advanced degenerative changes in the spine. Signed by Nadir Parks MD 09/21/2016 07:13 P
[2016-09-21 15:51] LABS: ALBUMIN 3.4 GM/DL (3.2-5.2); ALBUMIN/GLOBULIN RATIO 0.97 (1.00-1.93); BILIRUBIN,DIRECT 0.1 MG/DL (0.0-0.2); BILIRUBIN,TOTAL 0.4 MG/DL (0.2-1.0); CALCIUM LEVEL 8.7 MG/DL (8.8-10.2); CREATININE FOR GFR 2.67 MG/DL (0.70-1.30); GLOMERULAR FILTRATION RATE 24.1 (>35); POTASSIUM SERUM 4.3 MEQ/L (3.5-5.1); TOTAL PROTEIN 6.9 GM/DL (6.4-8.2)
[2016-09-21] MEDS ORDERED: NS 500 ML IV ONE (16:15)
[2016-09-21 17:16] VITALS: BP 143/75
--- NOTE | 2016-09-22 21:26 | ECGEPIP ---
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
== END 2016-09-21 17:24 | disposition home or self-care (01) ==
LOC: M ED 13:53
DX: K31.84 Gastroparesis (principal); E86.0 Dehydration; K57.90 Diverticulosis of intestine, part unspecified, without perforation or abscess without bleeding; N18.9 Chronic kidney disease, unspecified; I25.10 Atherosclerotic heart disease of native coronary artery without angina pectoris; I25.2 Old myocardial infarction; K21.9 Gastro-esophageal reflux disease without esophagitis; E07.9 Disorder of thyroid, unspecified; Z90.49 Acquired absence of other specified parts of digestive tract

== ENCOUNTER → 2016-11-14 | Outpatient (CLI) | payer MEDICARE ==
[~2016-11-14] MED LIST changes: +DOXY100C37 PO
[2016-11-14 13:00] LABS: FREE T4 1.41 NG/DL (0.76-1.46)
== END ==
LOC: M LAB 11:53
PROVIDERS: ATTEND Internal Medicine Endocrinology, Diabetes & Metabolism
DX: C73 Malignant neoplasm of thyroid gland (principal)

== ENCOUNTER 2016-12-06 04:19 | Emergency (ER) | payer MEDICARE ==
[~2016-12-06] VITALS: Ht 172.7 cm; Wt 75.0 kg
[~2016-12-06 04:19] MED LIST changes: -DOXY100C37 PO
[2016-12-06 05:07] LABS: BASO % 0.6 % (0.0-1.0); EOS # 0.3 10^3/uL (0.0-0.50); EOS % 4.4 % (0.0-3.0); IMMATURE GRANULOCYTE % 0.5 % (0-0); LYMPH # 1.3 10^3/uL (1.5-4.5); LYMPH % 20.3 % (24.0-44.0); MEAN CORPUSCULAR HGB CONC 33.1 g/dl (32.0-36.5); MEAN CORPUSCULAR VOLUME 90.7 fl (80.0-96.0); MONO # 0.6 10^3/uL (0.0-0.8); MONO % 8.3 % (0.0-5.0); NEUTROPHILS # 4.3 10^3/uL (1.8-7.7); NEUTROPHILS % 65.9 % (36.0-66.0); PLATELET COUNT, AUTOMATED 178 10^3/uL (150-450); RED CELL DISTRIBUTION WIDTH 13.3 % (11.5-14.5); WHITE BLOOD COUNT 6.6 10^3/uL (4.0-10.0)
[2016-12-06] MEDS ORDERED: MORPHINE 4 MG/ML 1ML SYRINGE IV ONE (05:15)
[2016-12-06 06:03] LABS: CALCIUM LEVEL 8.6 MG/DL (8.8-10.2); CREATININE FOR GFR 2.53 MG/DL (0.70-1.30); GLOMERULAR FILTRATION RATE 25.7 (>35); POTASSIUM SERUM 3.7 MEQ/L (3.5-5.1)
--- NOTE | 2016-12-06 06:50 | REPUSA ---
TESTICULAR SONOGRAM History: Pain. Comparison studies: 10/28/2015. Technique: Multiple real-time images of the scrotal contents were obtained. Findings: Right testicle measures 5.8x2.7x3.6 cm. Prominent rete testis. Left testicle measures 5.6x2.7x3.6 cm.Prominent rete testis. Unchanged echogenic foci of the left chantel ticle the largest measuring 5.4 mm. Right epididymal head cyst measuring 3.9 mm. Left epididymal head cyst measuring 2.2 mm. The testes are normal in size. Doppler flow is demonstrated on both testes. There are no findings luisana picious for testicular torsion. No findings suspicious for epididymitis are identified. A physiologic amount of fluid is identified i n each hemiscrotom. Impression: No evidence of testicular torsion is identified. No significant acute abnormality detected. Unchanged epididymal head cyst.s Unchanged echogenic foci of the left testicle, probably chronic.
--- NOTE | 2016-12-06 07:09 | ED PDOC ---
Post-Departure Follow-Up radiology report faxed to Tracie Fermin MD Dec 06, 2016 07:09
[2016-12-06] MEDS ORDERED: DOXY100C37 PO (07:40)
[2016-12-06] MEDS ORDERED: DOXYCYCLINE HYCLATE 100 MG TAB PO ONE (07:45)
[2016-12-06 07:49] VITALS: BP 134/67
== END 2016-12-06 08:15 | disposition home or self-care (01) ==
LOC: M ED 04:19
DX: N50.812 Left testicular pain (principal); E78.5 Hyperlipidemia, unspecified; N40.0 Benign prostatic hyperplasia without lower urinary tract symptoms; E03.9 Hypothyroidism, unspecified; Z95.0 Presence of cardiac pacemaker; Z87.891 Personal history of nicotine dependence; Z88.0 Allergy status to penicillin; Z88.8 Allergy status to other drugs, medicaments and biological substances; Z79.82 Long term (current) use of aspirin; Z79.899 Other long term (current) drug therapy

== ENCOUNTER → 2016-12-16 | Outpatient (CLI) | payer MEDICARE ==
[~2016-12-16] MED LIST changes: +DOXY100C37 PO
== END ==
LOC: M SMT 14:18
PROVIDERS: ATTEND Urology
DX: N40.1 Benign prostatic hyperplasia with lower urinary tract symptoms (principal)

== ENCOUNTER 2017-01-06 09:16 | Emergency (ER) | payer MEDICARE ==
[~2017-01-06] VITALS: Ht 172.7 cm; Wt 75.0 kg
[2017-01-06 09:17] VITALS: BP 177/95
[2017-01-06] MEDS ORDERED: VALA1TAB2 PO (10:04)
[2017-01-06] MEDS ORDERED: GABA-279 PO (10:04)
== END 2017-01-06 10:13 | disposition home or self-care (01) ==
LOC: M ED 09:16
DX: B02.8 Zoster with other complications (principal); I10 Essential (primary) hypertension; N40.0 Benign prostatic hyperplasia without lower urinary tract symptoms; E78.00 Pure hypercholesterolemia, unspecified; Z79.82 Long term (current) use of aspirin; Z79.899 Other long term (current) drug therapy; Z88.8 Allergy status to other drugs, medicaments and biological substances; Z88.0 Allergy status to penicillin; Z95.0 Presence of cardiac pacemaker; Z87.891 Personal history of nicotine dependence

== ENCOUNTER 2017-01-08 15:56 | Emergency (ER) | payer MEDICARE ==
[~2017-01-08] VITALS: Ht 172.7 cm; Wt 75.0 kg
[~2017-01-08 15:56] MED LIST changes: +GABA-279 PO; +VALA1TAB2 PO
[2017-01-08 17:25] LABS: BASO # 0.1 10^3/uL (0.0-0.2); BASO % 0.8 % (0.0-1.0); EOS # 0.2 10^3/uL (0.0-0.50); EOS % 3.9 % (0.0-3.0); IMMATURE GRANULOCYTE % 0.3 % (0-0); LYMPH # 0.9 10^3/uL (1.5-4.5); LYMPH % 14.4 % (24.0-44.0); MEAN CORPUSCULAR HEMOGLOBIN 30.1 pg (27.0-33.0); MEAN CORPUSCULAR HGB CONC 33.9 g/dl (32.0-36.5); MONO # 0.7 10^3/uL (0.0-0.8); MONO % 10.7 % (0.0-5.0); NEUTROPHILS # 4.3 10^3/uL (1.8-7.7); NEUTROPHILS % 69.9 % (36.0-66.0); PLATELET COUNT, AUTOMATED 190 10^3/uL (150-450); RED CELL DISTRIBUTION WIDTH 13.5 % (11.5-14.5); WHITE BLOOD COUNT 6.2 10^3/uL (4.0-10.0)
[2017-01-08 17:45] LABS: ALBUMIN 3.2 GM/DL (3.2-5.2); ALBUMIN/GLOBULIN RATIO 1.1 (1.00-1.93); BILIRUBIN,DIRECT 0.1 MG/DL (0.0-0.2); BILIRUBIN,TOTAL 0.4 MG/DL (0.2-1.0); CREATININE FOR GFR 2.27 MG/DL (0.70-1.30); GLOMERULAR FILTRATION RATE 29.1 (>35); POTASSIUM SERUM 4.1 MEQ/L (3.5-5.1); TOTAL PROTEIN 6.1 GM/DL (6.4-8.2)
[2017-01-08 18:28] VITALS: BP 194/94
--- NOTE | 2017-01-08 21:45 | ECGEPIP ---
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
== END 2017-01-08 18:30 | disposition home or self-care (01) ==
LOC: M ED 15:56
DX: R10.9 Unspecified abdominal pain (principal); I10 Essential (primary) hypertension; E03.9 Hypothyroidism, unspecified; N40.0 Benign prostatic hyperplasia without lower urinary tract symptoms; K31.84 Gastroparesis; Z95.0 Presence of cardiac pacemaker; Z79.899 Other long term (current) drug therapy; Z79.82 Long term (current) use of aspirin; Z88.8 Allergy status to other drugs, medicaments and biological substances; Z88.0 Allergy status to penicillin

== ENCOUNTER 2017-01-22 12:01 | Emergency (ER) | payer MEDICARE ==
[~2017-01-22] VITALS: Ht 171.4 cm; Wt 75.2 kg
[2017-01-22 12:01] VITALS: BP 168/95
[2017-01-22] MEDS ORDERED: TRIA25CR TOP (13:20)
== END 2017-01-22 14:04 | disposition home or self-care (01) ==
LOC: M ED 12:01
DX: H92.01 Otalgia, right ear (principal); Z79.82 Long term (current) use of aspirin; Z79.899 Other long term (current) drug therapy; Z88.8 Allergy status to other drugs, medicaments and biological substances; Z88.0 Allergy status to penicillin

== ENCOUNTER 2017-02-19 17:16 | Emergency (ER) | payer MEDICARE ==
[2017-02-19 20:00] LABS: BASO % 0.5 % (0.0-1.0); EOS % 0.5 % (0.0-3.0); HEMATOCRIT 43.8 % (42.0-52.0); HEMOGLOBIN 14.3 g/dl (14.0-18.0); IMMATURE GRANULOCYTE % 0.3 % (0-0); LYMPH # 0.5 10^3/uL (1.5-4.5); LYMPH % 8.2 % (24.0-44.0); MEAN CORPUSCULAR HGB CONC 32.6 g/dl (32.0-36.5); MEAN CORPUSCULAR VOLUME 91.8 fl (80.0-96.0); MONO # 0.8 10^3/uL (0.0-0.8); MONO % 12.8 % (0.0-5.0); NEUTROPHILS % 77.7 % (36.0-66.0); PLATELET COUNT, AUTOMATED 168 10^3/uL (150-450); RED BLOOD COUNT 4.77 10^6/uL (4.30-6.10); RED CELL DISTRIBUTION WIDTH 13.7 % (11.5-14.5); WHITE BLOOD COUNT 6.5 10^3/uL (4.0-10.0)
[2017-02-19] MEDS: MORPHINE 2 MG/ML 1ML SYRINGE IV (20:18)
[2017-02-19] MEDS: METOCLOPRAMIDE INJ 10MG/2ML VIAL (J2765) IV (20:18)
[2017-02-19 20:25] LABS: ALBUMIN 3.7 GM/DL (3.2-5.2); ALBUMIN/GLOBULIN RATIO 0.97 (1.00-1.93); ALKALINE PHOSPHATASE 47 U/L (45-117); ALT/SGPT 20 U/L (12-78); ANION GAP 8 MEQ/L (8-16); AST/SGOT 17 U/L (7-37); BILIRUBIN,DIRECT 0.1 MG/DL (0.0-0.2); BILIRUBIN,TOTAL 0.4 MG/DL (0.2-1.0); BLOOD UREA NITROGEN 31 MG/DL (7-18); CALCIUM LEVEL 8.6 MG/DL (8.8-10.2); CARBON DIOXIDE LEVEL 30 MEQ/L (21-32); CHLORIDE LEVEL 104 MEQ/L (98-107); CREATININE FOR GFR 2.58 MG/DL (0.70-1.30); GLOMERULAR FILTRATION RATE 25.1 (>35); GLUCOSE, FASTING 104 MG/DL (83-110); LIPASE 132 U/L (73-393); POTASSIUM SERUM 4.2 MEQ/L (3.5-5.1); SODIUM LEVEL 142 MEQ/L (136-145); TOTAL PROTEIN 7.5 GM/DL (6.4-8.2)
[2017-02-19 20:41] LABS: LACTIC ACID SEPSIS PROTOCOL 1.1 MMOL/L (0.4-2.0)
[2017-02-19 20:43] LABS: CPK CREATINE PHOSPHOKINASE 134 U/L (39-308); TROPONIN I 0.07 NG/ML (< 0.10)
[2017-02-19 20:44] LABS: CK-MB VALUE MASS 1.7 NG/ML (0.0-3.6); MB/CK RELATIVE INDEX 1.26 (< OR =4)
[2017-02-19] MEDS: SUCRALFATE 1 GM TAB PO (22:21)
[2017-02-19] MEDS: GI COCKTAIL 50ML BTL(HYOSCYAMINE/MAALOX/LIDOCAINE VISCOUS)(1:3:1) PO (22:21)
== END 2017-02-19 23:13 | disposition home or self-care (01) ==
LOC: M ED 17:16
DX: K29.00 Acute gastritis without bleeding (principal); I10 Essential (primary) hypertension; E78.5 Hyperlipidemia, unspecified; K21.9 Gastro-esophageal reflux disease without esophagitis; K31.84 Gastroparesis; E03.9 Hypothyroidism, unspecified; N40.0 Benign prostatic hyperplasia without lower urinary tract symptoms; Z79.82 Long term (current) use of aspirin; Z79.899 Other long term (current) drug therapy; Z88.8 Allergy status to other drugs, medicaments and biological substances; Z88.0 Allergy status to penicillin; Z87.891 Personal history of nicotine dependence
CPT/HCPCS: J2765

== ENCOUNTER 2017-03-03 06:36 | Day surgery (SDC) | payer MEDICARE ==
[2017-03-03] MEDS: NS 1,000 ML IV (07:00)
[2017-03-03] MEDS ORDERED: PROPOFOL 200 MG/20 ML VIAL As Ordered ×2 (07:38)
[2017-03-03] MEDS ORDERED: LIDOCAINE 2% INJ 100 MG/5 ML SDV (FOR ANES.) As Ordered (07:38)
== END 2017-03-03 08:47 | disposition home or self-care (01) ==
LOC: M OPP 08:47
DX: D12.0 Benign neoplasm of cecum (principal); R10.84 Generalized abdominal pain; K57.30 Diverticulosis of large intestine without perforation or abscess without bleeding; K64.8 Other hemorrhoids; K44.9 Diaphragmatic hernia without obstruction or gangrene; K31.84 Gastroparesis; N18.9 Chronic kidney disease, unspecified; I44.7 Left bundle-branch block, unspecified; I12.9 Hypertensive chronic kidney disease with stage 1 through stage 4 chronic kidney disease, or unspecified chronic kidney disease; E03.9 Hypothyroidism, unspecified; N40.0 Benign prostatic hyperplasia without lower urinary tract symptoms; K21.9 Gastro-esophageal reflux disease without esophagitis; E78.00 Pure hypercholesterolemia, unspecified; M19.90 Unspecified osteoarthritis, unspecified site; Z79.82 Long term (current) use of aspirin; Z79.899 Other long term (current) drug therapy; Z88.8 Allergy status to other drugs, medicaments and biological substances; Z80.0 Family history of malignant neoplasm of digestive organs; Z87.891 Personal history of nicotine dependence; Z95.0 Presence of cardiac pacemaker; Z90.89 Acquired absence of other organs
CPT/HCPCS: 45385